=== PATIENT | male | born 1935 | race Caucasian/White ===

== ENCOUNTER → 2019-01-14 14:54 | Outpatient (CLI) | payer MEDICARE, OTHER, SELFPAY ==
[2019-01-14 15:17] LABS: Basophils # 0.1 K/mm3 (0-0.2); Basophils % 0.5 % (0.1-2.0); Eosinophils # 0.2 K/mm3 (0.0-0.4); Eosinophils % 2.5 % (0.1-12.0); Hematocrit 41.1 % (42.0-52.0); Hemoglobin 13.4 g/dL (14.1-18.0); Lymphocytes # 3.1 K/mm3 (0.7-4.5); Lymphocytes % 35.4 % (10-50); Mean Corpuscular HGB Conc 32.7 g/dL (31.8-35.4); Mean Corpuscular Hemoglobin 32.5 pg (27.0-31.2); Mean Corpuscular Volume 99.3 fl (80-94); Mean Platelet Volume 6.9 fl (7.4-10.4); Monocytes # 0.5 K/mm3 (0.1-1.0); Monocytes % 5.2 % (1.7-9.3); Neutrophils % 56.3 % (37.0-80.0); Platelet Count 223 K/mm3 (142-424); Red Blood Count 4.14 M/mm3 (4.60-6.20); Red Cell Distribution Width 15.6 % (11.5-17.5); White Blood Count 8.9 K/mm3 (4.8-10.8)
[2019-01-14 16:13] LABS: Alanine Aminotransferase 14 U/L (12-78); Albumin Level 3.7 gm/dL (3.4-5.0); Albumin/Globulin Ratio 1.1 (1.1-1.8); Alkaline Phosphatase 94 U/L (46-116); Anion Gap 13.1 mEq/L (5-15); Aspartate Amino Transferase 17 U/L (15-37); Bilirubin,Total 0.4 mg/dL (0.2-1.0); Blood Urea Nitrogen 26 mg/dL (7-18); Calcium 8.9 mg/dL (8.5-10.1); Carbon Dioxide 28 mmol/L (21.0-32.0); Chloride 103 mmol/L (98-107); Creatinine,Serum 1.47 mg/dL (0.70-1.30); Estimated Glomerular Filt Rate 46 ml/min (>60); Free Thyroxine Index 4.3 ug/dL (5.93-13.13); GFR (African American) 55 ML/MIN (>60); Globulin 3.5 gm/dl (1.3-3.2); Glucose 115 mg/dL (74-106); Potassium 5.1 mmoL/L (3.5-5.1); Sodium 139 mmol/L (136-145); T4 (Thyroxine) 11.2 ug/dl (4.7-13.3); Thyroid Stimulating Hormone 0.07 uIU/ml (0.358-3.740); Total Protein,Serum 7.2 gm/dL (6.4-8.2); Triiodothryronine (T3) Uptake 38 % (31-39)
== END ==
PROVIDERS: Visit Provider Internal Medicine Adolescent Medicine
DX: I50.22 Chronic systolic (congestive) heart failure (principal); E03.9 Hypothyroidism, unspecified
CPT/HCPCS: 36415; 80053; 84436; 84443; 84479; 85025

== ENCOUNTER → 2019-08-21 14:53 | Outpatient (CLI) | payer MEDICARE, OTHER, SELFPAY ==
[2019-08-21 18:50] LABS: Anion Gap 12.4 mEq/L (5-15); Blood Urea Nitrogen 22 mg/dL (7-18); Calcium 9.3 mg/dL (8.5-10.1); Carbon Dioxide 29 mmol/L (21.0-32.0); Chloride 100 mmol/L (98-107); Creatinine,Serum 1.62 mg/dL (0.70-1.30); Estimated Glomerular Filt Rate 41 ml/min (>60); GFR (African American) 49 ML/MIN (>60); Glucose 113 mg/dL (74-106); Potassium 4.4 mmoL/L (3.5-5.1); Sodium 137 mmol/L (136-145)
== END ==
PROVIDERS: Visit Provider Internal Medicine Adolescent Medicine
DX: N18.2 Chronic kidney disease, stage 2 (mild) (principal)
CPT/HCPCS: 36415; 80048

== ENCOUNTER → 2019-11-22 14:40 | Outpatient (CLI) | payer MEDICARE, SELFPAY ==
[2019-11-22 19:33] LABS: Anion Gap 13.4 mEq/L (5-15); Blood Urea Nitrogen 26 mg/dL (7-18); Calcium 8.7 mg/dL (8.5-10.1); Carbon Dioxide 27 mmol/L (21.0-32.0); Chloride 102 mmol/L (98-107); Creatinine,Serum 1.74 mg/dL (0.70-1.30); Estimated Glomerular Filt Rate 38 ml/min (>60); GFR (African American) 45 ML/MIN (>60); Glucose 102 mg/dL (74-106); Potassium 4.4 mmoL/L (3.5-5.1); Sodium 138 mmol/L (136-145)
== END ==
PROVIDERS: Visit Provider Internal Medicine Adolescent Medicine
DX: N17.9 Acute kidney failure, unspecified (principal)
CPT/HCPCS: 36415; 80048

== ENCOUNTER → 2020-04-23 09:54 | Outpatient (CLI) | payer MEDICARE, SELFPAY ==
[2020-04-23 11:26] LABS: Chloride 101 mmol/L (98-107); Potassium 4.1 mmoL/L (3.5-5.1); Sodium 137 mmol/L (136-145)
[2020-04-23 11:29] LABS: Anion Gap 9.1 mEq/L (5-15); Blood Urea Nitrogen 22 mg/dl (9-20); Calcium 8.7 mg/dl (8.4-10.2); Carbon Dioxide 31 mmol/L (22.0-30.0); Estimated Glomerular Filt Rate 45 ml/min (>60); GFR (African American) 54 ML/MIN (>60); Glucose 122 mg/dl (74-100)
[2020-04-23 11:39] LABS: NT Pro Brain Natriuretic Pep. 2640 pg/mL (0-450)
== END ==
PROVIDERS: Visit Provider Internal Medicine Cardiovascular Disease
DX: I25.10 Atherosclerotic heart disease of native coronary artery without angina pectoris; I42.9 Cardiomyopathy, unspecified; I50.22 Chronic systolic (congestive) heart failure; Z95.810 Presence of automatic (implantable) cardiac defibrillator; R06.02 Shortness of breath
CPT/HCPCS: 36415; 80048; 83880

== ENCOUNTER → 2020-07-20 11:44 | Outpatient (CLI) | payer MEDICARE, SELFPAY ==
[2020-07-20 12:03] LABS: Basophils # 0.1 K/mm3 (0-0.2); Basophils % 0.7 % (0.1-2.0); Eosinophils # 0.2 K/mm3 (0.0-0.4); Eosinophils % 2.1 % (0.1-12.0); Hematocrit 36.7 % (42.0-52.0); Hemoglobin 12.2 g/dL (14.1-18.0); Lymphocytes # 3.1 K/mm3 (0.7-4.5); Lymphocytes % 34.5 % (10-50); Mean Corpuscular HGB Conc 33.3 g/dL (31.8-35.4); Mean Corpuscular Hemoglobin 39.8 pg (27.0-31.2); Mean Corpuscular Volume 119.4 fl (80-94); Mean Platelet Volume 7.5 fl (7.4-10.4); Monocytes # 0.7 K/mm3 (0.1-1.0); Monocytes % 7.3 % (1.7-9.3); Neutrophils % 55.4 % (37.0-80.0); Platelet Count 214 K/mm3 (142-424); Red Blood Count 3.08 M/mm3 (4.60-6.20); Red Cell Distribution Width 15.6 % (11.5-17.5)
[2020-07-20 12:48] LABS: Chloride 101 mmol/L (98-107); Sodium 142 mmol/L (136-145)
[2020-07-20 12:49] LABS: Potassium 3.9 mmoL/L (3.5-5.1)
[2020-07-20 12:51] LABS: Alanine Aminotransferase 9 U/L (12-78); Albumin Level 3.8 g/dl (3.5-5.0); Albumin/Globulin Ratio 1.4 (1.1-1.8); Alkaline Phosphatase 69 U/L (38-126); Anion Gap 13.9 mEq/L (5-15); Aspartate Amino Transferase 22 U/L (17-59); Bilirubin,Total 0.7 mg/dl (0.2-1.3); Blood Urea Nitrogen 28 mg/dl (9-20); Carbon Dioxide 31 mmol/L (22.0-30.0); Cholesterol 157 mg/dl (140-200); Estimated Glomerular Filt Rate 38 ml/min (>60); GFR (African American) 47 ML/MIN (>60); Globulin 2.8 g/dL (1.3-3.2); Total Protein,Serum 6.6 g/dl (6.3-8.2); Triglycerides 149 mg/dl (30-150); VLDL Cholesterol 30 mg/dL (0-40)
[2020-07-20 12:52] LABS: Calcium 9.1 mg/dl (8.4-10.2); Chol/HDL Ratio 4.4 (1-3.5); Glucose 102 mg/dl (74-100); HDL Cholesterol 36 mg/dl (40-60)
[2020-07-20 13:04] LABS: Direct LDL Cholesterol 97.55 mg/dL (100-129)
[2020-07-20 13:09] LABS: Triiodothryronine (T3) Uptake 36 % (23.5-40.5)
[2020-07-20 13:10] LABS: Free Thyroxine Index 2.9 ug/dL (5.93-13.13); T4 (Thyroxine) 8.1 ug/dl (5.53-11.0)
[2020-07-20 13:24] LABS: Thyroid Stimulating Hormone 9.54 uIU/mL (0.465-4.68)
[2020-07-20 14:10] LABS: Prostate Specific Ag Screen 1.8 ng/ml (0.0-4.0)
== END ==
PROVIDERS: Visit Provider Internal Medicine Adolescent Medicine
DX: I25.10 Atherosclerotic heart disease of native coronary artery without angina pectoris (principal); E03.9 Hypothyroidism, unspecified; N40.1 Benign prostatic hyperplasia with lower urinary tract symptoms; Z12.5 Encounter for screening for malignant neoplasm of prostate
CPT/HCPCS: 36415; 80053; 80061; 84436; 84443; 84479; 85025; G0103

== ENCOUNTER 2020-11-02 12:33 | Observation (INO) | payer MEDICARE, SELFPAY ==
[2020-11-02 13:07] VITALS: BMI 18.6
--- NOTE | 2020-11-02 13:19 | ECG_ITS ---
APPROVED REPORT Exam: Resting ECG HR:74 bpm ECG Measurements Heart Rate 74 AXES QRSd 166 QRS 97 QT 454 T 115 QTc 503 Conclusion Electronic ventricular pacemaker Electronically signed by : Franky Hernadez, 11/03/2020 19:56:55
--- NOTE | 2020-11-02 13:19 | XR_ITS ---
PROCEDURE: XR CHEST AP CLINICAL HISTORY: soa Shortness of air COMPARISON: CR CXR CHEST(2 VIEWS-NOT PORTABLE) from 08/14/2015 CR CXR CHEST(2 VIEWS-NOT PORTABLE) from 06/05/[address] CHEST W CON from 11/02/2020 FINDINGS: Prior CABG. Biventricular and right atrial pacemaker leads are present from left subclavian approach. Normal heart size. Lungs are clear bilaterally. No acute bony abnormalities. IMPRESSION: No acute findings. Dictated by: Daniel Barone MD 11/03/2020 14:16 Daniel Barone MD in [facility] 11/03/2020 14:16
--- NOTE | 2020-11-02 13:22 | CT_ITS ---
PROCEDURE: CT CHEST W CON CLINCAL INDICATION: 20LB WEIGHT LOSS, ABD PAIN, SOA 75ML ISO 370 NO PRIOR COMPARISON: CR XR CHEST AP from 11/02/[address] ABDOMEN PELVIS WO/W CON from 11/02/2020 TECHNIQUE: IV Contrast: 75ml Isovue 370 Axial images obtained with sagittal and coronal reformats. All CT scans at the facility use one or more dose reduction, viz: automated exposure control, ma/kV adjustment per patient size (including targeted exams where dose is matched to indication, i.e. head), or iterative reconstruction technique. FINDINGS: There is mild ectasia the ascending aorta and aortic arch and descending thoracic aorta withe scattered areas eccentric soft and calcific plaque within the descending thoracic aorta. No evidence of aortic dissection. No evidence of central pulmonary embolus. No mediastinal or hilar mass or adenopathy. There has been a prior CABG. Extensive coronary artery calcifications are noted. There is mild cardiomegaly. Cardiac pacemaker device is present. No lobar consolidation or collapse. The there is calcified granuloma in the superior segment of the left lower lobe. No suspicious pulmonary nodules. There are degenerative changes in the thoracic spine with mild thoracic kyphosis. No acute bony anomaly. IMPRESSION: 1. No acute finding. 2. Atherosclerotic changes of the descending thoracic aorta. Dictated by: Daniel Barone MD 11/03/2020 06:22 Daniel Barone MD in [facility] 11/03/2020 06:22
--- NOTE | 2020-11-02 13:22 | CT_ITS ---
PROCEDURE: CT ABDOMEN PELVIS WO/W CON CLINICAL INDICATION: 20 LB WT LOSS, ABD PAIN 75 ML ISOVUE 370 INJ INTO RT ANT >PRIOR 07/21/17 COMPARISON: CT ABDPELW/O CT ABD PELVIS W/O CONTRAST from 07/21/2017 TECHNIQUE: IV Contrast: 75ML Isovue 370 Oral Contrast None Axial images obtained with sagittal and coronal reformats. All CT scans at the facility use one or more dose reduction, viz: automated exposure control, ma/kV adjustment per patient size (including targeted exams where dose is matched to indication, i.e. head), or iterative reconstruction technique. FINDINGS: There are 2 small hypodensities of the liver 1 in the left hepatic lobe and 1 the right hepatic lobe at 5 and 4 mm. These are not significantly changed. The gallbladder is contracted. The spleen has an unremarkable appearance. Small nodular density involves left adrenal gland not significantly changed. The pancreas and kidneys have an unremarkable appearance. No intestinal obstruction or free air. There is colonic diverticulosis of the descending and sigmoid colon. A small collection or outpouching of the colon is noted along the inferior aspect of the sigmoid colon series 7, image 81. This is not significantly changed and previously described dating back to 01/13/2014. Chronic abscess or large diverticulum is considered as previously described. The prostate is enlarged at 5 x 3.7 cm. The appendix is not clearly delineated. There is no evidence of appendicitis. Degenerative changes are present in the lumbar spine. Osteoarthritic changes noted in the hips IMPRESSION: 1. No acute finding. Overall no significant change. 2. Colonic diverticulosis with a moderate amount of retained colonic feces. 3. No change infrarenal 4.1 cm abdominal aortic aneurysm. No evidence of retroperitoneal hemorrhage. 4. No change in the outpouching involving the sigmoid colon which could be due to colonic diverticulum or chronic abscess. 5. Enlarged prostate Dictated by: Daniel Barone MD 11/03/2020 06:33 Daniel Barone MD in [place] 11/03/2020 06:33
[2020-11-02 13:59] VITALS: BP 140/75; PULSE 60; RESP 20; TEMP 36.6; O2SAT 92
[2020-11-02 14:49] LABS: Alanine Aminotransferase 9 U/L (12-78); Albumin Level 3.3 g/dl (3.5-5.0); Alkaline Phosphatase 79 U/L (38-126); Anion Gap 9.2 mEq/L (5-15); Aspartate Amino Transferase 24 U/L (17-59); Bilirubin,Total 0.7 mg/dl (0.2-1.3); Blood Urea Nitrogen 26 mg/dl (9-20); Calcium 8.8 mg/dl (8.4-10.2); Carbon Dioxide 29 mmol/L (22.0-30.0); Chloride 102 mmol/L (98-107); Creatinine Clearance Estimated 31 mL/min (50-200); Estimated Glomerular Filt Rate 52 ml/min (>60); GFR (African American) 63 ML/MIN (>60); Globulin 3.4 g/dL (1.3-3.2); Glucose 131 mg/dl (74-100); Potassium 4.2 mmoL/L (3.5-5.1); Sodium 136 mmol/L (136-145); Total Protein,Serum 6.7 g/dl (6.3-8.2)
[2020-11-02 14:53] LABS: Basophils % 0.3 % (0.1-2.0); Eosinophils # 0.1 K/mm3 (0.0-0.4); Eosinophils % 1.1 % (0.1-12.0); Hematocrit 30.5 % (42.0-52.0); Hemoglobin 10.3 g/dL (14.1-18.0); Lymphocytes # 1.3 K/mm3 (0.7-4.5); Lymphocytes % 24.4 % (10-50); Mean Corpuscular HGB Conc 33.8 g/dL (31.8-35.4); Mean Corpuscular Hemoglobin 41.3 pg (27.0-31.2); Mean Corpuscular Volume 122.5 fl (80-94); Mean Platelet Volume 8.2 fl (7.4-10.4); Monocytes # 0.4 K/mm3 (0.1-1.0); Monocytes % 8.1 % (1.7-9.3); Neutrophils # 3.4 K/mm3 (1.8-7.8); Platelet Count 268 K/mm3 (142-424); Red Blood Count 2.49 M/mm3 (4.60-6.20); Red Cell Distribution Width 15.8 % (11.5-17.5); White Blood Count 5.1 K/mm3 (4.8-10.8)
[2020-11-02 14:59] LABS: Magnesium 2.3 mg/dl (1.6-2.3)
[2020-11-02 15:00] VITALS: PULSE 65; RESP 20; O2SAT 93
[2020-11-02 15:08] LABS: Coronavirus 19 IgG Antibody Negative (Negative); Coronavirus 19 IgM Antibody Negative (Negative)
--- NOTE | 2020-11-02 15:59 | HMH.PHAVTE ---
[facility] Pharmacy VTE Monitoring - Patient Demographics Admission date: 11/02/20 Report Date: 11/02/20 Time: 15:59 Allergies/Adverse Reactions: Patient Allergies Penicillins Allergy (Intermediate, Verified 04/23/20 10:39) I-RASH, ITCHING Height: 1.68 m Weight: 52.163 kg - VTE Risk Labs: VTE Related Lab Results Hgb 10.3 g/dL (14.1-18.0) L 11/02/20 14:20 Hct 30.5 % (42.0-52.0) L 11/02/20 14:20 Plt Count 268 K/mm3 (142-424) 11/02/20 14:20 BUN 26 mg/dl (9-20) H 11/02/20 14:20 Creatinine 1.30 mg/dl (0.66-1.25) H 11/02/20 14:20 Estimated Creat Clear 31 mL/min (50-200) 11/02/20 14:20 Was VTE Risk Assessment Performed: Yes VTE Score: 2 VTE Risk Level: Very Low Risk - Prophylaxis VTE Prophylaxis Ordered?: Yes Types of VTE Prophylaxis: TEDS Knee High Location of Applied Device: Bilateral Lower Extremeties
[2020-11-02 16:00] VITALS: BP 145/80; PULSE 65; RESP 20; TEMP 36.7; O2SAT 93
--- NOTE | 2020-11-02 17:03 | CT_ITS ---
PROCEDURE: CT HEAD/BRAIN W CON CLINICAL INDICATION: history of fall with confusion Head injury with headache/pain, contusion, abrasion or hematoma COMPARISON: No exams were available for comparison TECHNIQUE: IV Contrast: 100ML Isovue 370 Axial images obtained. All CT scans at the facility use one or more dose reduction, viz: automated exposure control, ma/kV adjustment per patient size (including targeted exams where dose is matched to indication, i.e. head), or iterative reconstruction technique. FINDINGS: The exam performed with contrast only. Subtle areas of hemorrhage may not be identified on enhanced images. No midline shift or mass effect. No large areas of intracranial hemorrhage apparent. There is atrophy with low-density changes in the periventricular region consistent with ischemic gliotic change from microvascular disease. 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 No acute calvarial fracture. No obvious mastoid effusion or sinus air-fluid level. IMPRESSION: 1. No acute intracranial finding. 2. 5 mm right middle cerebral artery aneurysm. 3. Subtle areas of subarachnoid hemorrhage may not be identified on an enhanced exam only. No large areas of hemorrhage apparent Dictated by: Daniel Barone MD 11/03/2020 06:16 Daniel Barone MD in [place] 11/03/2020 06:16
--- NOTE | 2020-11-02 17:04 | HMH.HP ---
*Admission Date: 11/02/20 *Chief complaint: Weight loss, abdominal pain, frequent falls *History of present illness: 85-year-old white male who is been in his normal state of health until the past 4 months when he is began to have the precipitous onset of weight loss, he has lost 30 pounds in the past couple of months, and has been falling more frequently including striking his head. He came to the office today, was down to 115 pounds with evidence of cachexia and severe protein calorie malnutrition. Abdominal pain was noted, swelling of the abdomen was noted, head abrasion from prior fall was noted, he was admitted to hospital for further evaluation, diagnostic testing and supportive care. [facility] History I have reviewed the patient's past medical history: Yes Medical History: Reports:: Cardiomyopathy, Coronary Artery Disease, Hyperlipidemia, Hypertension, Internal Pacemaker, Myocardial Infarction Denies:: Cancer, Diabetes Mellitus Type 1, Diabetes Mellitus Type 2, MRSA, Seizures *Have you ever received a pneumonia vaccine?: No *Have you received a flu vaccine this season?: No Other Medical History: Reports: Hypothyroidism Other Surgeries: Yes: CABG, Pacemaker Amputation: Yes (RT middle finger) Fractures: No - *Social History Last grade of school completed: 9th or 10th Smoking Status: Never smoker Alcohol Intake: never Alcohol Intake Frequency:: other Substance Use Type: denies use *Occupational Status:: retired Housing: house Household Members: none *Travel in the last 8 weeks: None Family Hx:: Unable to obtain Review of Systems - Review of Systems Review of systems:: pertinent systems reviewed and negative unless documented below - Constitutional Reports anorexia, Reports fatigue, Reports malaise, Denies night sweats - Eyes Denies blind spots, Denies blurry vision - ENT Reports poor balance, Reports dizziness, Reports dry mouth, Denies abnormal hearing - *Cardiovascular Denies chest pain, Denies excessive sweating - *Respiratory Denies change in phlegm color, Denies shortness of breath with activity, Denies excessive phlegm production - *Gastrointestinal Reports abdominal pain, Reports change in stools, Reports constipation - *Genitourinary Denies difficulty urinating, Denies side pain Meds Home Medications Medication Instructions Recorded Confirmed Type aspirin 325 mg tablet 325 mg PO DAILY tab 01/04/18 04/23/20 History isosorbide mononitrate 30 mg 30 mg PO BID tab 01/04/18 04/23/20 History tablet,extended release 24 hr mirtazapine 15 mg tablet 15 mg PO HS 01/04/18 04/23/20 History nitroglycerin 0.4 mg sublingual 0.4 mg SUBLINGUAL Q5M PRN 01/04/18 04/23/20 History tablet tamsulosin 0.4 mg capsule 0.4 mg PO DAILY 04/03/19 04/23/20 History famotidine 20 mg tablet 20 mg PO BID tab 04/10/20 04/23/20 History linaclotide 72 mcg capsule 72 mcg PO DAILY cap 04/10/20 04/23/20 History lorazepam 1 mg tablet 1 mg PO TID PRN 04/10/20 04/23/20 History Furosemide [Furosemide 20mg Tab*] 20 mg PO DAILY 11/02/20 History Hydralazine HCl [Apresoline 10mg 10 mg PO TID 11/02/20 History tablet] Levothyroxine Sodium 88 mcg PO DAILY 11/02/20 History [Levothyroxine 88mcg (0.088mg) Tab] carvediloL [Carvedilol 12.5mg Tab] 12.5 mg PO BID 11/02/20 History Allergies Allergy/AdvReac Type Severity Reaction Status Date / Time Penicillins Allergy Intermediate I-RASH, Verified 04/23/20 10:39 ITCHING Exam Vital signs and Labs for Last 24 Hours: Temp Pulse Resp BP Pulse Ox 98.1 F 65 20 145/80 H 93 L 11/02/20 16:00 11/02/20 16:00 11/02/20 16:00 11/02/20 16:00 11/02/20 16:00 Laboratory Results - last 24 hr 11/02/20 14:20: Magnesium 2.3 11/02/20 14:20: WBC 5.1, RBC 2.49 L, Hgb 10.3 L, Hct 30.5 L, MCV 122.5 H, MCH 41.3 H*, MCHC 33.8, RDW 15.8, Plt Count 268, MPV 8.2, Neut % (Auto) 66.0, Lymph % (Auto) 24.4, [place] % (Auto) 8.1, Eos % (Auto) 1.1, Baso % (Auto) 0.3, Neut # (Auto) 3.4, Lymph # (
[2020-11-02 17:51] LABS: Thyroid Stimulating Hormone 0.05 uIU/mL (0.465-4.68)
[2020-11-02 18:12] LABS: Vitamin B12 < 159 pg/mL (239-931)
--- NOTE | 2020-11-02 18:15 | PC.NURSE ---
Medication Reconciliation completed per records from [facility]. Pt is unable to confirm if/when he has taken any of his medications. Grand-daughter contacted at this time, she is unsure if/when pt has been taking his medications. Also, requested for medication bottles to be brought in the AM for verification.
[2020-11-02 20:00] VITALS: BP 116/61; PULSE 66; RESP 18; TEMP 36.6; O2SAT 98
[2020-11-03 04:00] VITALS: BP 100/51; PULSE 76; RESP 18; TEMP 36.9; O2SAT 94
[2020-11-03 04:56] VITALS: BMI 185594.5
--- NOTE | 2020-11-03 06:15 | PC.NURSE ---
Pt is A&Ox3. Oriented to place, name and situation but not time. Lung sounds are diminished t/o bilaterally. No cough noted. Active bowel sounds in all 4 quads. Pt ambulated w/ standby assist with a steady gait and balance. Pt was restless x1 this shift, PRN ativan administered per DEC. Pt has slept soundly since. No other complaints or acute changes at this time.
--- NOTE | 2020-11-03 07:22 | PC.NURSE ---
VITAMIN B12 SHOT NOT AVAILABLE IN 2ND FLOOR [facility], WILL CONTACT PHARMACY FOR MEDICATION WHEN THEY ARRIVE.
--- NOTE | 2020-11-03 07:25 | HMH.PHAINT ---
MEDICATION RECONCILIATION COMPLETED ON PATIENT USING EXTERNAL FILL HISTORY FROM PHARMACY. -GLENN ROJAS, JENNIFERD
[2020-11-03 07:38] LABS: Basophils % 0.3 % (0.1-2.0); Eosinophils # 0.1 K/mm3 (0.0-0.4); Eosinophils % 2.2 % (0.1-12.0); Hematocrit 29.3 % (42.0-52.0); Hemoglobin 9.7 g/dL (14.1-18.0); Lymphocytes # 1.6 K/mm3 (0.7-4.5); Lymphocytes % 31.1 % (10-50); Mean Corpuscular HGB Conc 33.2 g/dL (31.8-35.4); Mean Corpuscular Volume 122.9 fl (80-94); Mean Platelet Volume 8.4 fl (7.4-10.4); Monocytes # 0.4 K/mm3 (0.1-1.0); Neutrophils % 58.5 % (37.0-80.0); Platelet Count 256 K/mm3 (142-424); Red Blood Count 2.38 M/mm3 (4.60-6.20); Red Cell Distribution Width 15.8 % (11.5-17.5); White Blood Count 5.2 K/mm3 (4.8-10.8)
[2020-11-03 07:50] LABS: Anion Gap 10.1 mEq/L (5-15); Blood Urea Nitrogen 20 mg/dl (9-20); Calcium 8.6 mg/dl (8.4-10.2); Carbon Dioxide 28 mmol/L (22.0-30.0); Chloride 104 mmol/L (98-107); Creatinine Clearance Estimated 31 mL/min (50-200); Estimated Glomerular Filt Rate 52 ml/min (>60); GFR (African American) 63 ML/MIN (>60); Glucose 104 mg/dl (74-100); Potassium 4.1 mmoL/L (3.5-5.1); Sodium 138 mmol/L (136-145)
[2020-11-03 07:55] LABS: Mean Corpuscular Hemoglobin 40.8 pg (27.0-31.2)
[2020-11-03 08:00] VITALS: BP 96/51; PULSE 90; RESP 18; TEMP 36.9; O2SAT 94
--- NOTE | 2020-11-03 08:08 | CA_ITS ---
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 5.60 mmHg Mitral Valve MV E Max Lance. 78.00 (40-130 cm/s) MV A Velocity 84.00 (40-130 cm/s) E/A Ratio 0.93 MV Decel. Time 150.00 (160-240 ms) MV PHT 44.00 ms Pulmonary Valve PV Peak Velocity 60.00 (50-150 cm/s) Tricuspid Valve TR P. Velocity 265.00 cm/s RAP Estimate 10.00 mmHg RVSP 38.10 mmHg Left Ventricle Left atrium is moderately enlarged, left ventricle is mildly dilated, mild concentric left ventricular hypertrophy, severe reduced left ventricular systolic function, visually estimated ejection fraction approximately 25 to 30%, there is marked hypokinesis involving the mid to distal septum, anterior anterior apical and apical wall. Inferior basal wall is also markedly hypokinetic. Diastolic parameters are inconclusive. Right Ventricle Right atrium and right ventricle are mildly enlarged with normal contractility. There is an AICD lead seen in the right ventricle. Aortic Valve Aortic valve is thickened and calcified, there is no aortic stenosis, there is trace aortic insufficiency. Mitral Valve Mitral valve leaflets are minimally thickened, there is no mitral stenosis, there is moderate to severe mitral regurgitation. Tricuspid Valve Tricuspid valve is grossly normal, there is mild tricuspid regurgitation, calculated right ventricular systolic pressure is 38 mmHg. Pulmonic Valve Pulmonic valve is poorly visualized. Great Vessels Aortic root is normal size. Pericardium No significant pericardial effusion noted. Conclusion 1. Biatrial enlargement, mildly dilated left ventricle, severe reduced left ventricular systolic function, visually estimated ejection fraction 25 to 30% with multiple segmental wall motion abnormality described above. Diastolic parameters are inconclusive. 2. Moderate to severe mitral and mild tricuspid regurgitation, calculated right ventricular systolic pressure 38 mmHg. 3. No significant pericardial effusion noted. Electronically signed by : Jayden King, 11/04/2020 06:14:18
--- NOTE | 2020-11-03 08:18 | SW/DCPLANNER ---
PATIENT ADMITTED TO [facility] IN AN OBSERVATION STATUS WITH WEAKNESS, WEIGHT LOSS AND RECENT FALLS... HE RESIDES IN [place] [facility] AND HAS A GRANDDAUGHTER THAT CHECKS ON HIM AND HELPS TO CARE FOR HIM... HE IS ALERT AND ORIENTED AND THE PLAN IS FOR HIM TO RETURN HOME AFTER DISCHARGE...CURRENTLY WAITING ON SOME LABS AND MAY DISCHARGE LATER IN THE AFTERNOON.
--- NOTE | 2020-11-03 08:43 | HMH.ACPN2 ---
Internal Medicine - PN: Subj *Date: 11/03/20 *Time: 09:19 Interval history: Mr. Webb did well overnight. Reviewed his imaging this morning which showed no glaring masses or abnormalities in his chest abdomen or pelvis. It did show a large suspected diverticulum versus abscess. We will pursue further labs this morning to assess for infection. On interview however he denies significant abdominal pain. Ate all of his breakfast per his report. Is afebrile and normotensive. Very pleasant and asking when can he go home. Exam Vital signs and Labs for Last 24 Hours: Temp Pulse Resp BP Pulse Ox 98.5 F 90 18 96/51 L 94 L 11/03/20 08:00 11/03/20 08:00 11/03/20 08:00 11/03/20 08:00 11/03/20 08:00 Laboratory Results - last 24 hr 11/02/20 14:20: Magnesium 2.3 11/02/20 14:20: WBC 5.1, RBC 2.49 L, Hgb 10.3 L, Hct 30.5 L, MCV 122.5 H, MCH 41.3 H*, MCHC 33.8, RDW 15.8, Plt Count 268, MPV 8.2, Neut % (Auto) 66.0, Lymph % (Auto) 24.4, [place] % (Auto) 8.1, Eos % (Auto) 1.1, Baso % (Auto) 0.3, Neut # (Auto) 3.4, Lymph # (Auto) 1.3, [place] # (Auto) 0.4, Eos # (Auto) 0.1, Baso # (Auto) 0.0 11/02/20 14:20: Sodium 136, Potassium 4.2, Chloride 102, Carbon Dioxide 29, Anion Gap 9.2, BUN 26 H, Creatinine 1.30 H, Estimated Creat Clear 31, Estimated GFR 52 L, Est GFR ( Amer) 63, Glucose 131 H, Calcium 8.8, Total Bilirubin 0.7, AST 24, ALT 9 L, Alkaline Phosphatase 79, Total Protein 6.7, Albumin 3.3 L, Globulin 3.4 H, Albumin/Globulin Ratio 1.0 L 11/02/20 14:20: SARS-CoV-2 IgG Ab (Rapid) Negative, SARS-CoV-2 IgM Ab (Rapid) Negative 11/02/20 14:20: Vitamin B12 < 159 L, TSH 0.05 L 11/03/20 07:15: WBC 5.2, RBC 2.38 L, Hgb 9.7 L, Hct 29.3 L, MCV 122.9 H, MCH 40.8 H*, MCHC 33.2, RDW 15.8, Plt Count 256, MPV 8.4, Neut % (Auto) 58.5, Lymph % (Auto) 31.1, [place] % (Auto) 8.0, Eos % (Auto) 2.2, Baso % (Auto) 0.3, Neut # (Auto) 3.0, Lymph # (Auto) 1.6, [place] # (Auto) 0.4, Eos # (Auto) 0.1, Baso # (Auto) 0.0 11/03/20 07:15: Sodium 138, Potassium 4.1, Chloride 104, Carbon Dioxide 28, Anion Gap 10.1, BUN 20, Creatinine 1.30 H, Estimated Creat Clear 31, Estimated GFR 52 L, Est GFR ( Amer) 63, Glucose 104 H D, Calcium 8.6 I & O for Last 24 hours: Intake & Output 10/31/20 11/01/20 11/02/20 11/03/20 23:59 23:59 23:59 23:59 Intake Total 480 / 840 820 / 820 Balance 480 / 840 820 / 820 Weight 52.163 kg 52.163 kg Narrative: - Constitutional thin, cachectic, alert and oriented however. Pleasant on exam. - *Routine HEENT Exam Head: Present: laceration (Left occipital scalp, well-healing) Eye: Present: EOMI, PERRL ENT: Present: mucous membranes dry - *Routine Neck Exam Present: supple. Absent: lymphadenopathy - *Routine Respiratory Exam Present: CTA bilaterally - *Routine Cardiovascular Exam Present: RRR - *Routine Abdominal Exam Present: soft, normoactive bowel sounds, tenderness, distended (Both lower quadrants) - *Routine Extremities Exam Absent: cyanosis, clubbing, edema - *Routine Skin Exam Present: warm. Absent: rash - *Routine Neurological Exam Present: alert, oriented X3, abnormal gait (Patient is weak with ataxic gait) Assessment and Plan (1) Protein-calorie malnutrition, severe Status: Acute Category: Medical Code(s): E43 - Unspecified severe protein-calorie malnutrition (2) Weight loss Status: Acute Category: Medical Code(s): R63.4 - Abnormal weight loss (3) Abdominal pain Status: Acute Category: Medical Code(s): R10.9 - Unspecified abdominal pain (4) Recurrent falls Status: Acute Category: Medical Code(s): R29.6 - Repeated falls (5) Head trauma Status: Acute Category: Medical Code(s): S09.90XA - Unspecified injury of head, initial encounter (6) Cardiomyopathy Status: Chronic Qualifiers: Category: Medical Code(s): I42.9 - Cardiomyopathy, unspecified (7) Chronic systolic heart failure Status: Chronic Category: Medical Code(s): I50.22 - Chronic sy
[2020-11-03 09:03] LABS: C-Reactive Protein 30.7 mg/L (0-4)
[2020-11-03 09:37] LABS: Erythrocyte Sedimentation Rate > 140 mm/hr (0-20)
--- NOTE | 2020-11-03 10:08 | HMH.DCSUM ---
General - General Admission date:: 11/02/20 Discharge date: 11/03/20 HPI HPI: 85-year-old white male who is been in his normal state of health until the past 4 months when he is began to have the precipitous onset of weight loss, he has lost 30 pounds in the past couple of months, and has been falling more frequently including striking his head. He came to the office today, was down to 115 pounds with evidence of cachexia and severe protein calorie malnutrition. Abdominal pain was noted, swelling of the abdomen was noted, head abrasion from prior fall was noted, he was admitted to hospital for further evaluation, diagnostic testing and supportive care. Hospital Course Hospital Course: 85-year-old gentleman with weight loss and falls. Admitted for failure to thrive and acute assessment of suspicious malignant process underlying his weight loss and falls. Imaging fortunately showed no large masses in his abdomen but does have finding of suspicious diverticulum versus abscess. This finding was present 6 years ago and has not changed. No signs of bacterial infection on admission. Patient tolerated good p.o. intake during admission, was adamant about going home, and did not necessitate placement. Attrition was consulted to assist in recommendations for patient once he is at home. Feel his weight loss is likely related to patient's lack of cooking for himself and poor appetite. Plan to have close follow-up in our office. I worry about his ability to have access to good nutrition given that he lives by himself, and relies on neighbors to cook and food per his report. Believe weight loss is due to inadequate calories. Will need further treatment for his B12 deficiency, we can do this in our office with close follow-up. We will attempt to set up with home health for medication management. Objective Vital signs: Temp Pulse Resp BP Pulse Ox 98.5 F 90 18 96/51 L 94 L 11/03/20 08:00 11/03/20 08:00 11/03/20 08:00 11/03/20 08:00 11/03/20 08:00 Narrative: - Constitutional thin, cachectic, alert and oriented however. Pleasant on exam. - *Routine HEENT Exam Head: Present: laceration (Left occipital scalp, well-healing) Eye: Present: EOMI, PERRL ENT: Present: mucous membranes dry - *Routine Neck Exam Present: supple. Absent: lymphadenopathy - *Routine Respiratory Exam Present: CTA bilaterally - *Routine Cardiovascular Exam Present: RRR - *Routine Abdominal Exam Present: soft, normoactive bowel sounds, tenderness, distended (Both lower quadrants) - *Routine Extremities Exam Absent: cyanosis, clubbing, edema - *Routine Skin Exam Present: warm. Absent: rash - *Routine Neurological Exam Present: alert, oriented X3, abnormal gait (Patient is weak with ataxic gait) Results Labs on day of discharge: Labs from last 24 hours 11/03/20 11/03/20 11/03/20 07:15 07:15 07:15 WBC RBC Hgb Hct MCV MCH MCHC RDW Plt Count MPV Neut % (Auto) Lymph % (Auto) [place] % (Auto) Eos % (Auto) Baso % (Auto) Neut # (Auto) Lymph # (Auto) [place] # (Auto) Eos # (Auto) Baso # (Auto) ESR > 140 H Sodium 138 Potassium 4.1 Chloride 104 Carbon Dioxide 28 Anion Gap 10.1 BUN 20 Creatinine 1.30 H Estimated Creat Clear 31 Estimated GFR 52 L Est GFR ( Amer) 63 Glucose 104 H D Calcium 8.6 Magnesium Total Bilirubin AST ALT Alkaline Phosphatase C-Reactive Protein 30.7 H Total Protein Albumin Globulin Albumin/Globulin Ratio Vitamin B12 Procalcitonin 0.070 TSH SARS-CoV-2 IgG Ab (Rapid) SARS-CoV-2 IgM Ab (Rapid) 11/03/20 11/02/20 11/02/20 07:15 14:20 14:20 WBC 5.2 RBC 2.38 L Hgb 9.7 L Hct 29.3 L MCV 122.9 H MCH 40.8 H* MCHC 33.2 RDW 15.8 Plt Count 256 MPV 8.4 Neut % (Auto) 58.5 Lymph % (Auto) 31.1 [place] %
--- NOTE | 2020-11-03 10:21 | HMH.PTEV ---
Physical Therapy Evaluation Rehab PT IP Evaluation Start: 11/02/20 17:03 Freq: ONCE Status: Active Protocol: Document 11/03/20 09:00 GERMÁN (Rec: 11/03/20 10:21 GERMÁN [id number]) Subjective/History History History 85-year-old white male who is been in his normal state of health until the past 4 months when he is began to have the precipitous onset of weight loss, he has lost 30 pounds in the past couple of months, and has been falling more frequently including striking his head. He came to the office today, was down to 115 pounds with evidence of cachexia and severe protein calorie malnutrition. Abdominal pain was noted, swelling of the abdomen was noted, head abrasion from prior fall was noted, he was admitted to hospital for further evaluation, diagnostic testing and supportive care. Subjective Subjective Pt reports no complaints Rehab PT IP Eval Objective Appearance Patient Behavior Appropriate,Cooperative Patient Orientation Person,Place Difficulty following instructions none Speech Pattern Clear,Appropriate Ambulation Patient Able to Ambulate Yes Ambulation Observation IP General Gait Pattern Observation No Deviations/Normal Ambulation Distance (feet) 75 Ambulation Ability Supervision/Stand by,Contact Guard/Hand Hold Balance Ability to Arise Able, uses arms to help Sitting Balance Steady, safe Standing Balance Narrow stance w/o support Dynamic Sitting Balance Ability Normal Dynamic Standing Balance Ability Fair Transfers Bed Transfer Ability Independent Chair Transfer Ability Independent Sit to Stand Bed Transfer Ability Supervision/Stand by Sit to Stand Chair Transfer Ability Supervision/Stand by ROM All Extremities PT ROM Status WFL MMT All Extremities PT MMT WFL Rehab PT IP prob,goals,plan Problems Date of Evaluation: 11/03/20 PT IP Problems Gait,Safety Rehab Potential Rehab Potential Good Equipment Needs Assistive Devices None / NA Plan PT Intervention Plan Transfers,Gait,
[2020-11-03 10:45] VITALS: BMI 18.4
--- NOTE | 2020-11-03 11:01 | SW/DCPLANNER ---
Addendum entered by Yolanda Leslie RN 11/04/20 15:04: Contacted patient's granddaughter and Rosita SANTILLAN. There is no home health available due to patient's insurance. Discussed with Dr. Hernadez possibility of patient qualifying for Hospice. He agrees. The granddaughter agrees with this referral. Will send to Hospice. ANGÉLICA Stroud Addendum entered by Patricia Salazar 11/03/20 13:49: RECEIVED A CALL FROM [facility] AND THEY CAN NOT ACCEPT THE REFERRAL STATING THEY DO NOT HAVE A CONTRACT WITH HIS [facility].. I HAVE SENT IT TO [facility] BUT THE PEST MANAGEMENT SUPERVISOR DIDN'T THINK THEY DON'T HAVE A CONTRACT EITHER. WAITING TO HEAR BACK. Addendum entered by Patricia Salazar 11/03/20 11:10: MADE A CALL TO [facility] TO SET UP MEALS ON WHEELS... PATIENT IS BEING DISCHARGED FROM THE HOSPITAL AND HAS HAD A SIGNIFICANT WEIGHT AND LIVES ALONE.. I HAVE LEFT A LENGTHY MESSAGE TO SEE IF HE CAN BE EVALUATED FOR SERVICES TO START... Original Note: RECEIVED REFERRAL FOR THIS PATIENT FOR HOME HEALTH SERVICES....PT, OT AND LONG TERM TO EVALUATE AND TREAT... I SPOKE WITH PATIENT AND HE CHOSE THE LOCAL AGENCY, [facility].. I HAVE ASKED FOR THEM TO START SERVICES IN THE AM...FAMILY WILL BE CALLED WHEN PATIENT HAS BEEN COMPLETELY DISCHARGED..
== END 2020-11-03 11:30 | disposition home health service (06) ==
PROVIDERS: Internal Medicine Adolescent Medicine; Admitting Provider Internal Medicine Adolescent Medicine; PCP Internal Medicine Adolescent Medicine; Visit Provider Internal Medicine Adolescent Medicine
DX: E43 Unspecified severe protein-calorie malnutrition (principal); Z68.1 Body mass index [BMI] 19.9 or less, adult; D51.9 Vitamin B12 deficiency anemia, unspecified; R62.7 Adult failure to thrive; I42.9 Cardiomyopathy, unspecified; R29.6 Repeated falls; I11.0 Hypertensive heart disease with heart failure; I50.22 Chronic systolic (congestive) heart failure; I25.10 Atherosclerotic heart disease of native coronary artery without angina pectoris; Z95.0 Presence of cardiac pacemaker; Z95.1 Presence of aortocoronary bypass graft; E03.9 Hypothyroidism, unspecified; Z79.82 Long term (current) use of aspirin; Z88.0 Allergy status to penicillin; Z79.899 Other long term (current) drug therapy
CPT/HCPCS: G0379; 36415; 70460; 71045; 71260; 74178; 80048; 80053; 82607; 83735; 84145; 84443; 85025; 85651; 86140; 86328; 93005; 93306; 97161; G0378; Q9967

== ENCOUNTER 2021-03-25 20:37 | Inpatient (IN) | payer OTHER, MEDICARE, SELFPAY ==
[2021-03-25] VITALS (10 sets, daily range): BP systolic 92–164; BP diastolic 60–110; PULSE 62–96; RESP 24–32; TEMP 36.3; O2SAT 82–96; BMI 20.9
--- NOTE | 2021-03-25 20:43 | ECG_ITS ---
APPROVED REPORT Exam: Resting ECG HR:90 bpm ECG Measurements Heart Rate 90 AXES QRSd 170 QRS 103 QT 438 T -69 QTc 535 Conclusion Demand pacemaker, interpretation is based on intrinsic rhythm LBBB noted Abnormal ECG Electronically signed by : Franky Hernadez, 03/27/2021 07:27:16
[2021-03-25 21:04] LABS: ABG Base Excess -9.4 mmol/L (-2.4-2.3); ABG HCO3 17.8 mmhg (22.0-26.0); ABG Oxygen Saturation 89 % (90-100); ABG PCO2 41.3 mmhg (35.0-45.0); ABG PH 7.25 mmol/L (7.35-7.45); ABG PO2 58.2 mmhg (80-100); ABG TCO2 19.1 mmhg (23-27)
--- NOTE | 2021-03-25 21:04 | XR_ITS ---
PROCEDURE INFORMATION: Exam: XR Chest Exam date and time: 03/25/2021 9:04 PM Age: 85 years old Clinical indication: Shortness of breath; Prior surgery; Surgery type: Pacemaker, open heart; Patient HX: Acute onset of SOA TECHNIQUE: Imaging protocol: XR of the chest. Views: 1 view. COMPARISON: CR XR CHEST AP 11/02/2020 3:20 PM FINDINGS: Tubes, catheters and devices: There is a left chest wall triple lead pacing device, unchanged. Lungs: There are prominent bilateral perihilar markings. Bilateral diffuse lung opacities in a perihilar distribution. Pleural spaces: Unremarkable. No pleural effusion. No pneumothorax. Heart/Mediastinum: The heart is borderline enlarged. Bones/joints: Mid sternotomy wires and postoperative changes of CABG re-identified. Diffuse osteopenia. IMPRESSION: Prominent bilateral perihilar and diffuse lung opacities may represent pulmonary edema, atelectasis or pneumonia.
--- NOTE | 2021-03-25 21:06 | HMH.EDSOB ---
ED Disposition Clinical Impression: Automatic implantable cardiac defibrillator in situ, Severe sepsis with acute organ dysfunction Community acquired pneumonia Qualifiers: Laterality: right Lung location: lower lobe of lung Qualified Code(s): J18.9 - Pneumonia, unspecified organism UTI (urinary tract infection) Qualifiers: Urinary tract infection type: site unspecified Hematuria presence: without hematuria Qualified Code(s): N39.0 - Urinary tract infection, site not specified CHF (congestive heart failure) Qualifiers: Heart failure type: unspecified Heart failure chronicity: acute on chronic Qualified Code(s): I50.9 - Heart failure, unspecified Disposition: Admitted As Inpatient Condition on Discharge: Pending Sale To [facility] - Critical Care Critical Care Time: No Attestation: On 03/25/21, the high probability of a clinically significant, sudden or life threatening deterioration of the following system(s) required my full and direct attention, intervention and personal management. The time I documented below is in addition to time spent performing reported procedures but includes the following listed in this critical care notation. Medical Decision Making - Medical Records Medical records reviewed: Yes: I reviewed the patient's medical records. - Yaniv Inquiry Pt receiving controlled substance: No Vital Signs: 03/25/21 20:48 03/25/21 20:50 03/25/21 21:06 Temperature 97.4 F L Temperature Source Oral Pulse Rate 84 87 Pulse Rate [Right] 62 Respiratory Rate 32 H Blood Pressure 158/102 H 143/110 H Blood Pressure [Right Arm] 164/105 H Blood Pressure Mean [Right Arm] 124 Blood Pressure Source [Right Arm] Automatic Cuff Blood Pressure Position [Right Arm] Supine 02 Sat by Pulse Oximetry 89 L 82 L 96 Oxygen Delivery Method Room Air Oxygen Flow Rate (LPM) 03/25/21 21:30 03/25/21 21:48 03/25/21 22:01 Temperature Temperature Source Pulse Rate 79 92 H 64 Pulse Rate [Right] Respiratory Rate Blood Pressure 135/90 116/61 Blood Pressure [Right Arm] Blood Pressure Mean [Right Arm] Blood Pressure Source [Right Arm] Blood Pressure Position [Right Arm] 02 Sat by Pulse Oximetry 94 L 96 92 L Oxygen Delivery Method Vapotherm Oxygen Flow Rate (LPM) 30 03/25/21 22:30 Temperature Temperature Source Pulse Rate 70 Pulse Rate [Right] Respiratory Rate Blood Pressure 112/66 Blood Pressure [Right Arm] Blood Pressure Mean [Right Arm] Blood Pressure Source [Right Arm] Blood Pressure Position [Right Arm] 02 Sat by Pulse Oximetry 95 Oxygen Delivery Method Oxygen Flow Rate (LPM) - Lab Data Lab results reviewed: Yes: I reviewed the patient's lab results. Lab Results 03/25/21 21:00: Specimen Source Left radial, O2 % 2lnc, ABG pH 7.25 L, ABG pCO2 41.3, ABG pO2 58.2 L, ABG HCO3 17.8 L, ABG Total CO2 19.1 L, ABG O2 Saturation 89 L, ABG Base Excess -9.4 L, Daniel Test Acceptable 03/25/21 21:00: Lactate 2.7 H 03/25/21 21:10: Urine Color Yellow, Urine Appearance Sl cloudy, Urine pH 5.5, Ur Specific [place] >= 1.030, Urine Protein 1+, Urine Glucose (UA) Negative, Urine Ketones Negative, Urine Blood 3+, Urine Nitrate Negative, Urine Bilirubin Negative, Urine Urobilinogen 0.2, Ur Leukocyte Esterase 1+ A, Urine RBC 20-50, Urine WBC 50-100, Ur Squamous Epith Cells 3-5, Urine Bacteria 4+ 03/25/21 21:10: Chlamy pneumoniae PCR Not detected, Adenovirus (PCR) Not detected, B. pertussis DNA (PCR) Not detected, Coronavirus OC43 (PCR) Not detected, Coronavirus HKU1 (PCR) Not detected, Coronavirus 229E (PCR) Not detected, SARS-CoV-2 (PCR) Not detected, Coronavirus NL63 (PCR) Not detected, Human Metapneumovir PCR Not detected, Influenza A (H1) PCR Not detected, Influ A (H1N1/09) PCR Not detected, Influenza A (H3) PCR Not detected, Influenza Type A (PCR) Not detected, Influenza Type B (PCR) Not detected, M. pneumoniae (PCR) Not detected, Parainfluenza 1 (PCR) Not detected, Parainfluenza 2 (PCR) Not detected
[2021-03-25 21:17] LABS: Microscopic, Urine URINE MICROSCOPIC (MICROSCOPIC)
[2021-03-25 21:19] LABS: Adenovirus,PCR Not Detected (NotDetected); Bordetella Pertussis Not Detected (NotDetected); Chlamydophila Pneumoniae, PCR Not Detected (NotDetected); Coronavirus 19, PCR Not Detected (NotDetected); Coronavirus 229E Not Detected (NotDetected); Coronavirus NL63 Not Detected (NotDetected); Coronavirus OC43 Not Detected (NotDetected); Coronovirus HKU1,PCR Not Detected (NotDetected); Human Metapneumovirus Not Detected (NotDetected); Influenza A, PCR Not Detected (NotDetected); Influenza AH1, 2009 Not Detected (NotDetected); Influenza AH1, PCR Not Detected (NotDetected); Influenza AH3,PCR Not Detected (NotDetected); Influenza B, PCR Not Detected (NotDetected); Mycoplasma Pneumoniae, PCR Not Detected (NotDetected); Parainfluenza 1, PCR Not Detected (NotDetected); Parainfluenza 2, PCR Not Detected (NotDetected); Parainfluenza 3, PCR Not Detected (NotDetected); Parainfluenza 4, PCR Not Detected (NotDetected); Respiratory Syncytial Virus Not Detected (NotDetected); Rhinovirus/Enterovirus Not Detected (NotDetected)
[2021-03-25 21:23] LABS: Basophils # 0.1 K/mm3 (0-0.2); Basophils % 0.4 % (0.1-2.0); Eosinophils # 0.2 K/mm3 (0.0-0.4); Eosinophils % 0.7 % (0.1-12.0); Hematocrit 38.9 % (42.0-52.0); Hemoglobin 12.6 g/dL (14.1-18.0); Lymphocytes # 4.2 K/mm3 (0.7-4.5); Lymphocytes % 15.9 % (10-50); Mean Corpuscular HGB Conc 32.5 g/dL (31.8-35.4); Mean Corpuscular Volume 92.3 fl (80-94); Mean Platelet Volume 7.5 fl (7.4-10.4); Monocytes % 3.8 % (1.7-9.3); Neutrophils # 20.8 K/mm3 (1.8-7.8); Neutrophils % 79.2 % (37.0-80.0); Platelet Count 315 K/mm3 (142-424); Red Blood Count 4.21 M/mm3 (4.60-6.20); Red Cell Distribution Width 15.6 % (11.5-17.5); White Blood Count 26.2 K/mm3 (4.8-10.8)
[2021-03-25 21:23] LABS: Appearance,Urine SL CLOUDY (Clear); Bilirubin,Urine Negative (Negative); Blood, Urine 3+ (Negative); Color,Urine YELLOW (Yellow); Glucose,Urine (UA) Negative (Negative); Ketones,Urine Negative (Negative); Leukocyte Esterase,Urine 1+ (Negative); Nitrate,Urine Negative (Negative); PH,Urine 5.5 (5.0-8.5); Protein,Urine 1+ (Negative); Specific Gravity, Urine >= 1.030 (1.005-1.030); Urobilinogen,Urine 0.2 EU/dl (0.2)
[2021-03-25 21:29] LABS: MANUAL DIFFERENTIAL MANUAL DIFFERENTIAL (MANUAL DIFF)
[2021-03-25 21:29] LABS: Allen's Test Acceptable; Oxygen 2LNC %; Source Left Radial
[2021-03-25 21:30] LABS: RBC,Urine 20-50 #/hpf (0-3); WBC,Urine 50-100 #/hpf (0-3)
[2021-03-25 21:31] LABS: Bacteria,Urine 4+ /lpf
[2021-03-25 21:32] LABS: Alanine Aminotransferase 11 U/L (12-78); Albumin Level 4.1 g/dl (3.5-5.0); Albumin/Globulin Ratio 1.1 (1.1-1.8); Alkaline Phosphatase 126 U/L (38-126); Anion Gap 14.9 mEq/L (5-15); Aspartate Amino Transferase 21 U/L (17-59); Bilirubin,Total 0.9 mg/dl (0.2-1.3); Blood Urea Nitrogen 20 mg/dl (9-20); Calcium 8.5 mg/dl (8.4-10.2); Carbon Dioxide 17 mmol/L (22.0-30.0); Chloride 105 mmol/L (98-107); Creatinine Clearance Estimated 35 mL/min (50-200); Estimated Glomerular Filt Rate 52 ml/min (>60); GFR (African American) 63 ML/MIN (>60); Globulin 3.7 g/dL (1.3-3.2); Glucose 258 mg/dl (74-100); Potassium 3.9 mmoL/L (3.5-5.1); Sodium 133 mmol/L (136-145); Total Protein,Serum 7.8 g/dl (6.3-8.2)
[2021-03-25 21:37] LABS: C-Reactive Protein 56.8 mg/L (0-4)
[2021-03-25 21:43] LABS: NT Pro Brain Natriuretic Pep. 10300 pg/mL (0-450)
[2021-03-25 21:46] LABS: Troponin I 0.02 ng/ml (0.00-0.034)
[2021-03-25 21:48] LABS: Erythrocyte Sedimentation Rate 40 mm/hr (0-20)
[2021-03-25 21:48] LABS: Lactic Acid 2.7 mmol/L (0.7-2.1)
[2021-03-25 22:09] LABS: Eosinophils % 1 % (0-3); Lymphocytes % 12 % (10-50); Monocytes % 4 % (2-9); Neutrophils % 80 % (42-76); Platelet Estimate Normal; RBC Morphology Normal; Total Cells Counted 100
--- NOTE | 2021-03-25 22:09 | PC.NURSE ---
Pt's granddaughter & POA, Rosita Pereira, has set up password of Rosita . JACQUE was instructed with the number of the 2nd fl to call for updates.
[2021-03-25 22:22] LABS: T4 (Thyroxine) 6.1 ug/dl (5.53-11.0)
--- NOTE | 2021-03-25 23:01 | PC.NURSE ---
Kourtney content manager nurse for [facility] (Hospice) paged
[2021-03-26] VITALS (15 sets, daily range): BP systolic 103–118; BP diastolic 57–75; PULSE 69–88; RESP 18–20; TEMP 35.9–36.8; O2SAT 82–98; BMI 20.6; BMI 20.5
--- NOTE | 2021-03-26 00:06 | PC.NURSE ---
PT ARRIVE TO FLOOR VIA STRETCHER FROM ED W/STAFF AT 0005
[2021-03-26 00:22] LABS: Reflex Lactic Add Lactic Reflex
[2021-03-26 01:05] LABS: Lactic Acid Follow Up (RFLX 1) 1.4 mmol/L (0.7-2.1)
[2021-03-26 01:18] LABS: Troponin I 0.06 ng/ml (0.00-0.034)
[2021-03-26 03:16] LABS: Troponin I 0.07 ng/ml (0.00-0.034)
--- NOTE | 2021-03-26 04:14 | PC.NURSE ---
pt alert and oriented. during admission code status addressed and pt expressed wishes to be a full code. telemetry reads paced. iv patent and infusing per order. vss slightly improving. rodriguez draining clear yellow urine.call light in reach. will continue to monitor pt condition
[2021-03-26 06:39] LABS: POC Glucose,Bedside 140 (70-110)
[2021-03-26 06:49] LABS: Basophils % 0.1 % (0.1-2.0); Eosinophils # 0.1 K/mm3 (0.0-0.4); Eosinophils % 0.3 % (0.1-12.0); Hematocrit 35.5 % (42.0-52.0); Lymphocytes # 1.3 K/mm3 (0.7-4.5); Lymphocytes % 7.4 % (10-50); Mean Corpuscular HGB Conc 31.9 g/dL (31.8-35.4); Mean Platelet Volume 7.6 fl (7.4-10.4); Monocytes # 0.2 K/mm3 (0.1-1.0); Monocytes % 0.9 % (1.7-9.3); Neutrophils # 15.6 K/mm3 (1.8-7.8); Neutrophils % 91.3 % (37.0-80.0); Platelet Count 206 K/mm3 (142-424); Red Blood Count 3.91 M/mm3 (4.60-6.20); Red Cell Distribution Width 15.6 % (11.5-17.5)
[2021-03-26 07:00] LABS: Anion Gap 15.1 mEq/L (5-15); Blood Urea Nitrogen 21 mg/dl (9-20); Calcium 8.2 mg/dl (8.4-10.2); Carbon Dioxide 17 mmol/L (22.0-30.0); Chloride 108 mmol/L (98-107); Creatinine Clearance Estimated 40 mL/min (50-200); Estimated Glomerular Filt Rate 64 ml/min (>60); GFR (African American) 77 ML/MIN (>60); Glucose 131 mg/dl (74-100); Magnesium 1.8 mg/dl (1.6-2.3); Potassium 4.1 mmoL/L (3.5-5.1); Sodium 136 mmol/L (136-145)
[2021-03-26 07:01] LABS: MANUAL DIFFERENTIAL MANUAL DIFFERENTIAL (MANUAL DIFF)
--- NOTE | 2021-03-26 07:14 | HMH.HP ---
*Admission Date: 03/25/21 *Chief complaint: short of breath, weakness *History of present illness: Mr. Webb is an 85-year-old white male with history of failure to thrive, systolic heart failure, chronic anemia, who presented to the ER yesterday with progressive shortness of breath and weakness for the past few days. Of note, he was seen in October due to failure to thrive and progressive weight loss. Has been at home on hospice. Came in today with family due to concern for respiratory distress. Patient noted to have significant hypoxemia and respiratory acidosis. Was started on Vapotherm in the ER. Work-up concerning for UTI, right lower lobe pneumonia, leukocytosis, and ROMI. Meeting criteria for severe sepsis. Started on IV antibiotics, IV fluids, and cultures obtained per protocol. Admitted to medicine for further management. On exam this morning, patient appears comfortable on Vapotherm has been able to wean down on settings. Tolerating breakfast, pleasant and oriented on interview. Complains of small shortness of breath but denies chest pain, nausea, vomiting, diarrhea. No headache or altered mental status. [facility] History I have reviewed the patient's past medical history: Yes Medical History: Reports:: Aneurysm, Cardiomyopathy, Congestive Heart Failure, Coronary Artery Disease, Diabetes Mellitus Type 1, Diabetes Mellitus Type 2, Hyperlipidemia, Hypertension, Internal Pacemaker, Myocardial Infarction Denies:: Cancer, MRSA, Seizures *Have you ever received a pneumonia vaccine?: No *Have you received a flu vaccine this season?: Yes Other Medical History: Reports: Hypothyroidism Other Surgeries: Yes: CABG, Pacemaker Amputation: Yes (RT middle finger) Fractures: No - *Social History Last grade of school completed: 7th or 8th Smoking Status: Former smoker Tobacco Type: cigarettes # Packs/Day (cigarettes): 5 #Yrs smoked (if former smoker): 40 Alcohol Intake: never Alcohol Intake Frequency:: other Substance Use Type: denies use *Occupational Status:: retired Housing: house Household Members: none *Travel in the last 8 weeks: None Family Hx:: Unable to obtain Review of Systems - Review of Systems Review of systems:: pertinent systems reviewed and negative unless documented below (14 point review of systems performed, pertinent positives and negatives as per HPI) - *Neurologic Denies seizure-like activity Meds Home Medications Medication Instructions Recorded Confirmed Type aspirin 325 mg tablet 325 mg PO DAILY tab 01/04/18 03/26/21 History tamsulosin 0.4 mg capsule 0.4 mg PO HS 04/03/19 03/26/21 History famotidine 20 mg tablet 20 mg PO BID tab 04/10/20 03/26/21 History carvediloL [Carvedilol 12.5mg Tab] 12.5 mg PO BID 11/02/20 03/26/21 History Isosorbide Mononitrate [Isosorbide 30 mg PO BID 03/25/21 03/26/21 History Mononitrate ER] Levothyroxine Sodium [Synthroid 75 mcg PO DAILYDM 03/25/21 03/26/21 History 75mcg (0.075mg) tablet] Mirtazapine [Remeron 15mg tablet] 15 mg PO HS 03/25/21 03/26/21 History Sennosides/Docusate Sodium 1 each PO BID 03/25/21 03/26/21 History [Senexon-S Tablet] Furosemide [Lasix 20mg tab] 20 mg PO DAILYP PRN 03/26/21 03/26/21 History LORazepam [Lorazepam 1mg Tablet] 1 mg PO TID 03/26/21 03/26/21 History Allergies Allergy/AdvReac Type Severity Reaction Status Date / Time Penicillins Allergy Intermediate I-RASH, Verified 04/23/20 10:39 ITCHING Exam Vital signs and Labs for Last 24 Hours: Temp Pulse Resp BP Pulse Ox 97.1 F L 74 18 110/63 95 03/26/21 03:25 03/26/21 06:34 03/26/21 03:25 03/26/21 03:25 03/26/21 06:34 Laboratory Results - last 24 hr 03/25/21 21:00: Specimen Source Left radial, O2 % 2lnc, ABG pH 7.25 L, ABG pCO2 41.3, ABG pO2 58.2 L, ABG HCO3 17.8 L, ABG Total CO2 19.1 L, ABG O2 Saturation 89 L, ABG Base Excess -9.4 L, Daniel Test Acceptable 03/25/21 21:00: Lactate 2.7 H 03/25/21 21:10: Urine Color Yellow, Urine Appearance Sl c
--- NOTE | 2021-03-26 08:00 | CA_ITS ---
APPROVED REPORT EXAM: Comprehensive 2D, Doppler, and color-flow Echocardiogram Service Promoter Salesperson: Mayra Thomas RVT Ht: 5 ft 6 in Wt: 130lbs BSA: 1.67 BP: 116/61 mmHg Indications: SOA,CHF,CM,AICD,CAD,EX SMOKER,HTN,HLD 2D Dimensions LVOT 2.00 cm (M/F) 1.5-2.5 LA Volume 42.60 mL LA Volume Index 25.66 mL/m2 (M/F) 16-34 M-Mode Dimensions RVDd 2.25 cm (0.9-2.6) LA Diam 4.90 cm (1.9-4.0) LVDd 6.16 cm (3.5-5.7) Ao Diam 3.81 cm (2.0-3.7) LVDs 4.91 cm (3.5-5.7) IVSd 1.09 cm (0.6-1.1) PWd 0.68 cm (0.6-1.1) EF (Teich) 40.70% FS 20.30% EDV (Teich) 191.10 mL TAPSE 1.92 (<1.7) ESV (Teich) 113.40 mL LV Diastology E Decel Time 150.00 (160-240 msec) E/A Ratio 2.4 MED E' 3.50 (< 7 cm/sec) E'/MED E' Ratio 29.97 (>14) LAT E' 3.60 (<10 cm/sec) E/LAT E' Ratio 29.14 (>14) Aortic Valve AO Peak GR. 4.10 mmHg Mitral Valve MV E Max Lance. 105.00 (40-130 cm/s) MV A Velocity 44.00 (40-130 cm/s) E/A Ratio 2.36 MV Decel. Time 150.00 (160-240 ms) MV PHT 44.00 ms Pulmonary Valve PV Peak Velocity 69.00 (50-150 cm/s) Tricuspid Valve TR P. Velocity 339.00 cm/s RAP Estimate 10.00 mmHg RVSP 56.00 mmHg Left Ventricle Left atrium is moderately enlarged, left ventricle is mildly dilated, there is severely recessed ventricular systolic function, visually estimated ejection fraction approximately 30%, left ventricle is globally hypokinetic, superimposed segmental wall motion abnormality cannot be excluded. Diastolic parameters are inconclusive. Right Ventricle Right atrium and right ventricle mildly enlarged with normal contractility, there is an AICD lead seen in right ventricle. Aortic Valve Aortic valve is minimally thickened and fibrosed, there is no aortic stenosis or aortic insufficiency. Mitral Valve Mitral valve leaflets are minimally thickened, there is moderate to severe mitral regurgitation. Tricuspid Valve Tricuspid valve grossly normal, there is mild tricuspid regurgitation, calculated right ventricular systolic pressure is 49 mmHg. Pulmonic Valve Pulmonic valve is poorly visualized. Great Vessels Aortic root is normal size. Inferior vena cava is mildly dilated without significant inspiratory collapse. Pericardium No significant pericardial effusion noted. Conclusion 1. Biatrial enlargement, dilated left ventricle, severely recessed ventricular systolic function, visually estimated ejection fraction 30% with left ventricle globally hypokinetic, superimposed segmental wall motion abnormality cannot be excluded. As endocardial surfaces are poorly visualized. Diastolic parameters are inconclusive. 2. Moderate to severe mitral regurgitation. 3. Mild tricuspid regurgitation, calculated right ventricular systolic pressure is 49 mmHg. 4. No significant pericardial effusion noted. Electronically signed by : Jayden King, 03/26/2021 14:21:55
--- NOTE | 2021-03-26 08:26 | HMH.PHAVTE ---
[facility] Pharmacy VTE Monitoring - Patient Demographics Admission date: 03/26/21 Report Date: 03/26/21 Time: 08:26 Allergies/Adverse Reactions: Patient Allergies Penicillins Allergy (Intermediate, Verified 04/23/20 10:39) I-RASH, ITCHING Height: 1.68 m Weight: 58.258 kg Patient Problems: Current Active Problems Protein-calorie malnutrition, severe (Acute) Community acquired pneumonia (Acute) Severe sepsis with acute organ dysfunction (Acute) UTI (urinary tract infection) (Acute) CHF (congestive heart failure) (Acute) Acute hypoxemic respiratory failure (Acute) Non-STEMI (non-ST elevated myocardial infarction) (Acute) Acute on chronic systolic CHF (congestive heart failure) (Acute) 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
--- NOTE | 2021-03-26 09:00 | HMH.PHAINT ---
CLARIFIED HOME MEDICATION LIST WITH [facility] AND THEN CALLED [facility] THE [facility] THAT PATIENT ACTUALLY USES. ALSO DISCUSSED WITH STILL CLEANER TUBE FROM CARDIOLOGY
--- NOTE | 2021-03-26 10:30 | SW/DCPLANNER ---
This patient is currently established with [facility]. I spoke with Dina from [facility] and she has confirmed this patients stay is related to Hospice services. I will continue to update Hospice regarding this patient.
[2021-03-26 10:45] LABS: Lymphocytes % 11 % (10-50); Neutrophils % 89 % (42-76); Platelet Estimate Normal; RBC Morphology Normal; Total Cells Counted 100
[2021-03-26 11:03] LABS: Hemoglobin 11.3 g/dL (14.1-18.0)
--- NOTE | 2021-03-26 11:50 | DIET.NUTRFU ---
Pt with severe protein calorie malnutrition rt CHF. Pt given malnutrition dx at last stay with loss 20% BW past year. He has not lost any weight since then, however he is retaining fluid likely masking weight loss. Pt is taking advantage of nutritional services available with Hospice and this has improved his nutritional status some. Diet edu/counseling for malnutrition/CHF given and pt encouraged to reach out with any questions/concerns post dc. Diet partially liberalized to No Added Salt with BID supplements of pt's preference. Fat/cholesterol restriction not indicated, will monitor and alter as needed.
--- NOTE | 2021-03-26 17:31 | PC.NURSE ---
PT UNABLE TO MAKE PRODUCTIVE COUGH. SPECIMEN CUP LEFT AT BEDSIDE
--- NOTE | 2021-03-26 17:39 | PC.NURSE ---
Pt has been pleasant and cooperative this shift. A&O X4. No complaints of pain. No N/V. Pt is currently receiving O2 via Vapotherm @ 20 LPM with sats. >90%. Lung sounds reveal fine crackles. No edema noted. Skin is C/D/I. Telemetry reveals a PACED rhythm. Pt ambulates with assistance X1. F/C is patent and draining clear, yellow urine at bedside to gravity. No BM today. Appetite is fair and pt eats about 50-75% of all meals. Pt has been instructed to provide a sputum sample and a specimen cup is at bedside. 20 G peripheral IV in the LT AC is patent and SL. 20 G peripheral IV in the LT wrist is patent and infusing NS @ 50 ML/HR. VSS. Call light within reach. Will continue to monitor.
[2021-03-27] VITALS (14 sets, daily range): BP systolic 105–123; BP diastolic 51–81; PULSE 64–78; RESP 18–24; TEMP 35.9–36.9; O2SAT 87–99; BMI 20.9
--- NOTE | 2021-03-27 03:19 | PC.NURSE ---
shift summary pt is alert andoriented X4. note some fine crackles in pts lung sounds. pt is receiving O2 via vapotherm with 10L and 20% fio2 with sats maintained 90% or above. oil well shooter shows pt has a paced rhythm. pt voids per rodriguez with clear yellow in color urine. pt denies any pain, nausea, vomiting, or diarrhea.
[2021-03-27 07:06] LABS: Basophils % 0.1 % (0.1-2.0); Eosinophils % 0.2 % (0.1-12.0); Hematocrit 33.8 % (42.0-52.0); Lymphocytes # 1.9 K/mm3 (0.7-4.5); Lymphocytes % 11.9 % (10-50); Mean Corpuscular HGB Conc 32.5 g/dL (31.8-35.4); Mean Corpuscular Hemoglobin 29.9 pg (27.0-31.2); Mean Corpuscular Volume 91.9 fl (80-94); Mean Platelet Volume 7.6 fl (7.4-10.4); Monocytes # 0.6 K/mm3 (0.1-1.0); Monocytes % 3.5 % (1.7-9.3); Neutrophils # 13.5 K/mm3 (1.8-7.8); Neutrophils % 84.3 % (37.0-80.0); Platelet Count 215 K/mm3 (142-424); Red Blood Count 3.68 M/mm3 (4.60-6.20); Red Cell Distribution Width 15.8 % (11.5-17.5)
[2021-03-27 07:08] LABS: MANUAL DIFFERENTIAL MANUAL DIFFERENTIAL (MANUAL DIFF)
[2021-03-27 07:21] LABS: Alanine Aminotransferase 18 U/L (12-78); Albumin Level 3.7 g/dl (3.5-5.0); Albumin/Globulin Ratio 1.2 (1.1-1.8); Alkaline Phosphatase 80 U/L (38-126); Aspartate Amino Transferase 25 U/L (17-59); Bilirubin,Total 0.6 mg/dl (0.2-1.3); Blood Urea Nitrogen 30 mg/dl (9-20); Calcium 8.2 mg/dl (8.4-10.2); Carbon Dioxide 21 mmol/L (22.0-30.0); Chloride 107 mmol/L (98-107); Creatinine Clearance Estimated 30 mL/min (50-200); Estimated Glomerular Filt Rate 44 ml/min (>60); GFR (African American) 54 ML/MIN (>60); Globulin 3.2 g/dL (1.3-3.2); Glucose 128 mg/dl (74-100); Magnesium 1.9 mg/dl (1.6-2.3); Sodium 137 mmol/L (136-145); Total Protein,Serum 6.9 g/dl (6.3-8.2)
[2021-03-27 08:15] LABS: Lymphocytes % 13 % (10-50); Monocytes % 3 % (2-9); Neutrophils % 82 % (42-76); Platelet Estimate Normal; RBC Morphology Normal; Total Cells Counted 100
--- NOTE | 2021-03-27 08:17 | HMH.ACPN2 ---
Internal Medicine - PN: Subj *Date: 03/27/21 *Time: 08:17 Interval history: Mr. Webb continues to improve intervally overnight. Decreased oxygen requirement on Vapotherm with appropriate saturations. Continues to have good diuresis over the past 24 hours. Patient remains afebrile. No nausea or vomiting. Denies any confusion, significant cough, chest pain or palpitations. Exam Vital signs and Labs for Last 24 Hours: Temp Pulse Resp BP Pulse Ox 98.2 F 64 20 116/70 95 03/27/21 08:00 03/27/21 08:00 03/27/21 08:00 03/27/21 08:00 03/27/21 08:00 Laboratory Results - last 24 hr 03/25/21 21:10: Urine Color Yellow, Urine Appearance Sl cloudy, Urine pH 5.5, Ur Specific [place] >= 1.030, Urine Protein 1+, Urine Glucose (UA) Negative, Urine Ketones Negative, Urine Blood 3+, Urine Nitrate Negative, Urine Bilirubin Negative, Urine Urobilinogen 0.2, Ur Leukocyte Esterase 1+ A, Urine RBC 20-50, Urine WBC 50-100, Ur Squamous Epith Cells 3-5, Urine Bacteria 4+ 03/26/21 06:19: Hgb 11.3 L D, Total Counted 100, Neutrophils % (Manual) 89 H, Lymphocytes % (Manual) 11, Platelet Estimate Normal, RBC Morphology Normal 03/27/21 06:43: WBC 16.0 H, RBC 3.68 L, Hgb 11.0 L, Hct 33.8 L, MCV 91.9, MCH 29.9, MCHC 32.5, RDW 15.8, Plt Count 215, MPV 7.6, Neut % (Auto) 84.3 H, Lymph % (Auto) 11.9, [place] % (Auto) 3.5, Eos % (Auto) 0.2, Baso % (Auto) 0.1, Neut # (Auto) 13.5 H, Lymph # (Auto) 1.9, [place] # (Auto) 0.6, Eos # (Auto) 0.0, Baso # (Auto) 0.0, Total Counted 100, Neutrophils % (Manual) 82 H, Band Neutrophils % 1.0, Lymphocytes % (Manual) 13, Monocytes % (Manual) 3, Metamyelocytes % 1.0, Platelet Estimate Normal, RBC Morphology Normal 03/27/21 06:43: Sodium 137, Potassium 4.0, Chloride 107, Carbon Dioxide 21 L D, Anion Gap 13.0, BUN 30 H D, Creatinine 1.50 H D, Estimated Creat Clear 30, Estimated GFR 44 L, Est GFR ( Amer) 54 L D, Glucose 128 H, Calcium 8.2 L, Magnesium 1.9, Total Bilirubin 0.6, AST 25, ALT 18 D, Alkaline Phosphatase 80, Total Protein 6.9, Albumin 3.7, Globulin 3.2, Albumin/Globulin Ratio 1.2 I & O for Last 24 hours: Intake & Output 03/24/21 03/25/21 03/26/21 03/27/21 23:59 23:59 23:59 23:59 Intake Total 1450 / 2700 3208 / 3208 240 / 240 Output Total 2200 / 2600 400 / 400 Balance 1450 / 2700 1008 / 608 -160 / -160 Weight 58.967 kg 58 kg 59.137 kg Microbiology Reports for the Last 24 Hours: Microbiology 03/25/21 21:10 Urine,Catheterized Urine Culture - Final Escherichia coli Narrative: - Constitutional Minimal distress, thin/cachectic, chronically ill appearing, cooperative - *Routine HEENT Exam Head: Present: normocephalic Eye: Present: EOMI, PERRL ENT: Present: mucous membranes moist Comments: Bitemporal wasting - *Routine Neck Exam Present: supple. Absent: lymphadenopathy - *Routine Respiratory Exam Present: Interval improvement in work of breathing, continues to have wheezes, crackles most prominent in right lower lobe, diminished air movement. No rhonchi - *Routine Cardiovascular Exam Present: RRR - *Routine Abdominal Exam Present: soft, normoactive bowel sounds. Absent: tenderness Comments: Scaphoid - *Routine Extremities Exam Absent: cyanosis, clubbing, edema - *Routine Skin Exam Present: warm. Absent: rash - *Routine Neurological Exam Present: alert, oriented X3 Assessment and Plan (1) NYHA class 4 acute on chronic systolic heart failure Status: Acute Category: Medical Code(s): I50.23 - Acute on chronic systolic (congestive) heart failure (2) Acute hypoxemic respiratory failure Status: Acute Category: Medical Code(s): J96.01 - Acute respiratory failure with hypoxia (3) Community acquired pneumonia Status: Acute Qualifiers: Laterality: right Lung location: lower lobe of lung Qualified Code(s): J18.9 - Pneumonia, unspecified organism Category: Medical Code(s): J18.9 - Pneumonia, unspecified organism
--- NOTE | 2021-03-27 10:12 | HMH.DCSUM ---
General - General Admission date:: 03/26/21 Discharge date: 03/27/21 HPI HPI: Mr. Webb is an 85-year-old white male with history of failure to thrive, systolic heart failure, chronic anemia, who presented to the ER yesterday with progressive shortness of breath and weakness for the past few days. Of note, he was seen in October due to failure to thrive and progressive weight loss. Has been at home on hospice. Came in today with family due to concern for respiratory distress. Patient noted to have significant hypoxemia and respiratory acidosis. Was started on Vapotherm in the ER. Work-up concerning for UTI, right lower lobe pneumonia, leukocytosis, and ROMI. Meeting criteria for severe sepsis. Started on IV antibiotics, IV fluids, and cultures obtained per protocol. Admitted to medicine for further management. On exam this morning, patient appears comfortable on Vapotherm has been able to wean down on settings. Tolerating breakfast, pleasant and oriented on interview. Complains of small shortness of breath but denies chest pain, nausea, vomiting, diarrhea. No headache or altered mental status. Hospital Course Hospital Course: 85 yo M with multiple chronic health issues on Hospice at home who presented with Pneumonia, CHF exacerbation, and UTI. With therapeutic acute hypoxemic respiratory failure. Patient has remained stable and improved with decreasing oxygen requirements. Additionally found to have ROMI on presentation. Responding well to current treatment. Initially treated with supplemental oxygen via Vapotherm. Able to wean off oxygen fairly rapidly during hospitalization. This morning patient is off oxygen and stable on room air with saturations in the mid 90s. Denies any respiratory distress. -Tolerating antibiotics for UTI and pneumonia. Completed 3 days of azithromycin with third dose this afternoon. Will continue with 4 more additional days of clindamycin and cefdinir for pneumonia and UTI coverage. Transition to oral medications for completion at home -Hypothyroid, TSH elevated on presentation, increase levothyroxine to 100 mcg daily. We will continue this at home as well Tolerating good p.o. intake. Patient medically stable for discharge back home in the care of hospice. Has shown rapid progression to current treatment. See med rec for full medication recommendations. Holding diuretic until completion of antibiotics, resume thereafter. Clark was discontinued morning of discharge with patient urinating independently Examined on day of discharge, patient requesting to go home. Feel he is medically stable given his discontinued need for oxygen and ability to transition all therapies to oral. Objective Vital signs: Temp Pulse Resp BP Pulse Ox 98.2 F 64 20 116/70 94 L 03/27/21 08:00 03/27/21 08:15 03/27/21 08:15 03/27/21 08:00 03/27/21 08:19 Narrative: - Constitutional No acute distress, thin/cachectic, chronically ill appearing, cooperative - *Routine HEENT Exam Head: Present: normocephalic Eye: Present: EOMI, PERRL ENT: Present: mucous membranes moist Comments: Bitemporal wasting - *Routine Neck Exam Present: supple. Absent: lymphadenopathy - *Routine Respiratory Exam Present: On room air, significant improvement in wheezes and crackles. Faint crackles right lower lobe. Improvement in air movement bilaterally. No rhonchi - *Routine Cardiovascular Exam Present: RRR - *Routine Abdominal Exam Present: soft, normoactive bowel sounds. Absent: tenderness Comments: Scaphoid - *Routine Extremities Exam Absent: cyanosis, clubbing, edema - *Routine Skin Exam Present: warm. Absent: rash - *Routine Neurological Exam Present: alert, oriented X3 Results Labs on day of discharge: Labs from last 24 hours 03/27/21 03/27/21 03/26/21 06:43 06:43 06:19 WBC 16.0 H RBC 3.68 L Hgb 11.0 L 11.3 L D Hct 33.8 L MCV 91.9 MCH 29.9
--- NOTE | 2021-03-27 15:14 | HMH.ACPN2 ---
Internal Medicine - PN: Subj *Date: 03/27/21 *Time: 15:14 Interval history: Mr. Webb did well overnight and was able to wean off oxygen this morning. Stable on room air when rounded on him this morning. Up to bedside chair with assistance. Continues to be quite weak and fatigued. Eating fairly well however. Denies any fevers, nausea or vomiting. Has had some loose stools today but family reports he normally has multiple stools a day which she considers to be regular . Does not complain of any chest pain or shortness of breath. Alert and oriented. Extensive discussion with POA about goals of care for patient today. Concern for his wellbeing as he lives by himself and has struggled with medication management and self-care in the past. Reviewed labs this morning, kidney function slightly worse with bump in creatinine today. Exam Vital signs and Labs for Last 24 Hours: Temp Pulse Resp BP Pulse Ox 98.5 F 71 22 105/71 L 99 03/27/21 11:51 03/27/21 11:51 03/27/21 11:51 03/27/21 11:51 03/27/21 11:51 Laboratory Results - last 24 hr 03/27/21 06:43: WBC 16.0 H, RBC 3.68 L, Hgb 11.0 L, Hct 33.8 L, MCV 91.9, MCH 29.9, MCHC 32.5, RDW 15.8, Plt Count 215, MPV 7.6, Neut % (Auto) 84.3 H, Lymph % (Auto) 11.9, [place] % (Auto) 3.5, Eos % (Auto) 0.2, Baso % (Auto) 0.1, Neut # (Auto) 13.5 H, Lymph # (Auto) 1.9, [place] # (Auto) 0.6, Eos # (Auto) 0.0, Baso # (Auto) 0.0, Total Counted 100, Neutrophils % (Manual) 82 H, Band Neutrophils % 1.0, Lymphocytes % (Manual) 13, Monocytes % (Manual) 3, Metamyelocytes % 1.0, Platelet Estimate Normal, RBC Morphology Normal 03/27/21 06:43: Sodium 137, Potassium 4.0, Chloride 107, Carbon Dioxide 21 L D, Anion Gap 13.0, BUN 30 H D, Creatinine 1.50 H D, Estimated Creat Clear 30, Estimated GFR 44 L, Est GFR ( Amer) 54 L D, Glucose 128 H, Calcium 8.2 L, Magnesium 1.9, Total Bilirubin 0.6, AST 25, ALT 18 D, Alkaline Phosphatase 80, Total Protein 6.9, Albumin 3.7, Globulin 3.2, Albumin/Globulin Ratio 1.2 I & O for Last 24 hours: Intake & Output 03/24/21 03/25/21 03/26/21 03/27/21 23:59 23:59 23:59 23:59 Intake Total 1450 / 2700 3208 / 3208 360 / 360 Output Total 2200 / 2600 500 / 500 Balance 1450 / 2700 1008 / 608 -140 / -140 Weight 58.967 kg 58 kg 59.137 kg Microbiology Reports for the Last 24 Hours: Microbiology 03/25/21 21:10 Urine,Catheterized Urine Culture - Final Escherichia coli Narrative: - Constitutional No acute distress, thin/cachectic, chronically ill appearing, cooperative - *Routine HEENT Exam Head: Present: normocephalic Eye: Present: EOMI, PERRL ENT: Present: mucous membranes moist Comments: Bitemporal wasting - *Routine Neck Exam Present: supple. Absent: lymphadenopathy - *Routine Respiratory Exam Present: On room air, significant improvement in wheezes and crackles. Faint crackles right lower lobe. Improvement in air movement bilaterally. No rhonchi - *Routine Cardiovascular Exam Present: RRR - *Routine Abdominal Exam Present: soft, normoactive bowel sounds. Absent: tenderness Comments: Scaphoid - *Routine Extremities Exam Absent: cyanosis, clubbing, edema - *Routine Skin Exam Present: warm. Absent: rash - *Routine Neurological Exam Present: alert, oriented X3 Assessment and Plan (1) NYHA class 4 acute on chronic systolic heart failure Status: Acute Category: Medical Code(s): I50.23 - Acute on chronic systolic (congestive) heart failure (2) Acute hypoxemic respiratory failure Status: Acute Category: Medical Code(s): J96.01 - Acute respiratory failure with hypoxia (3) Community acquired pneumonia Status: Acute Qualifiers: Laterality: right Lung location: lower lobe of lung Qualified Code(s): J18.9 - Pneumonia, unspecified organism Category: Medical Code(s): J18.9 - Pneumonia, unspecified organism (4) UTI (urinary tract infection) Status: Acute Qualifiers:
--- NOTE | 2021-03-27 15:34 | PC.NURSE ---
Pt has been pleasant and cooperative this shift. A&O X4. No complaints of pain. No N/V. Pt is currently on room air with sats. >90%. Lung sounds reveal fine crackles. No edema noted. Skin is C/D/I. Pt ambulates with stand-by assistance to/from the bathroom and throughout the room. Pt has sat up in the recliner for the majority of the day. F/C D/C'd this AM and pt uses the urinal to void clear, yellow urine without issue. 1 small, soft, brown BM today. Appetite is fair and pt eats about 50-75% of all meals. Pt has been instructed to provide a sputum sample and a specimen cup is at bedside. 20 G peripheral IV in the LT AC is patent and SL. 20 G peripheral IV in the LT wrist is patent and infusing NS @ 50 ML/HR. VSS. Call light within reach. Will continue to monitor.
--- NOTE | 2021-03-27 15:37 | PC.NURSE ---
Pt has been pleasant and cooperative this shift. A&O X4. No complaints of pain. No N/V. Pt is currently on room air with sats. >90%. Lung sounds reveal fine crackles. No edema noted. Skin is C/D/I. Pt ambulates with stand-by assistance to/from the bathroom and throughout the room. Pt has sat up in the recliner for the majority of the day. F/C D/C'd this AM and pt uses the urinal to void clear, yellow urine without issue. 1 small, soft, brown BM today. Appetite is fair and pt eats about 50-75% of all meals. Pt has been instructed to provide a sputum sample and a specimen cup is at bedside. 20 G peripheral IV in the LT AC is patent and SL. 20 G peripheral IV in the LT wrist is patent SL. VSS. Call light within reach. Will continue to monitor.
[2021-03-28] VITALS: BP 110/75; PULSE 70; RESP 24; TEMP 36.5; O2SAT 91
--- NOTE | 2021-03-28 03:27 | PC.NURSE ---
No acute changes overnight. Pt A&O. No c/o pain this shift. Pt has rested well. Lungs have some scattered crackles, on room air. Bowel sounds x4, abd soft and nontender. Pt has ambulated with a walker to the bathroom with stand by assist. Tolerates well. Skin is CDI. IV patent, SL. VSS, call light in reach, no concerns at this time.
[2021-03-28 04:00] VITALS: BP 116/76; PULSE 83; RESP 24; TEMP 36.4; O2SAT 91
[2021-03-28 05:00] VITALS: BMI 21.4
[2021-03-28 06:50] LABS: Basophils % 0.1 % (0.1-2.0); Eosinophils # 0.1 K/mm3 (0.0-0.4); Eosinophils % 0.3 % (0.1-12.0); Hematocrit 30.7 % (42.0-52.0); Hemoglobin 10.3 g/dL (14.1-18.0); Lymphocytes % 12.2 % (10-50); Mean Corpuscular HGB Conc 33.6 g/dL (31.8-35.4); Mean Corpuscular Hemoglobin 30.3 pg (27.0-31.2); Mean Corpuscular Volume 90.3 fl (80-94); Mean Platelet Volume 8.4 fl (7.4-10.4); Monocytes # 0.8 K/mm3 (0.1-1.0); Monocytes % 5.1 % (1.7-9.3); Neutrophils # 13.5 K/mm3 (1.8-7.8); Neutrophils % 82.4 % (37.0-80.0); Platelet Count 218 K/mm3 (142-424); White Blood Count 16.4 K/mm3 (4.8-10.8)
[2021-03-28 06:57] LABS: MANUAL DIFFERENTIAL MANUAL DIFFERENTIAL (MANUAL DIFF)
[2021-03-28 07:02] LABS: Anion Gap 12.7 mEq/L (5-15); Blood Urea Nitrogen 34 mg/dl (9-20); Calcium 7.9 mg/dl (8.4-10.2); Carbon Dioxide 19 mmol/L (22.0-30.0); Chloride 108 mmol/L (98-107); Creatinine Clearance Estimated 35 mL/min (50-200); Estimated Glomerular Filt Rate 52 ml/min (>60); GFR (African American) 63 ML/MIN (>60); Glucose 103 mg/dl (74-100); Potassium 3.7 mmoL/L (3.5-5.1); Sodium 136 mmol/L (136-145)
[2021-03-28 07:50] LABS: Lymphocytes % 16 % (10-50); Monocytes % 4 % (2-9); Neutrophils % 75 % (42-76); Platelet Estimate Normal; RBC Morphology Normal; Total Cells Counted 100
[2021-03-28 08:00] VITALS: BP 123/74; PULSE 94; RESP 24; TEMP 36.6; O2SAT 97
--- NOTE | 2021-03-28 08:23 | HMH.ACPN2 ---
Internal Medicine - PN: Subj *Date: 03/28/21 *Time: 09:30 Interval history: pt has done well overnight. Tolerating good PO intake. Remains afebrile. Ambulating with walker. denies SOA, CP, LOTT< N/V. some loose stool yesterday after stool softener. hemodynamically stable. Exam Vital signs and Labs for Last 24 Hours: Temp Pulse Resp BP Pulse Ox 97.9 F 94 H 24 123/74 97 03/28/21 08:00 03/28/21 08:00 03/28/21 08:00 03/28/21 08:00 03/28/21 08:00 Laboratory Results - last 24 hr 03/28/21 06:40: WBC 16.4 H, RBC 3.40 L, Hgb 10.3 L, Hct 30.7 L, MCV 90.3, MCH 30.3, MCHC 33.6, RDW 16.0, Plt Count 218, MPV 8.4, Neut % (Auto) 82.4 H, Lymph % (Auto) 12.2, [place] % (Auto) 5.1, Eos % (Auto) 0.3, Baso % (Auto) 0.1, Neut # (Auto) 13.5 H, Lymph # (Auto) 2.0, [place] # (Auto) 0.8, Eos # (Auto) 0.1, Baso # (Auto) 0.0, Total Counted 100, Neutrophils % (Manual) 75, Band Neutrophils % 4.0, Lymphocytes % (Manual) 16, Monocytes % (Manual) 4, Metamyelocytes % 1.0, Platelet Estimate Normal, RBC Morphology Normal 03/28/21 06:40: Sodium 136, Potassium 3.7, Chloride 108 H, Carbon Dioxide 19 L, Anion Gap 12.7, BUN 34 H, Creatinine 1.30 H, Estimated Creat Clear 35, Estimated GFR 52 L, Est GFR ( Amer) 63, Glucose 103 H, Calcium 7.9 L, Magnesium 2.0 I & O for Last 24 hours: Intake & Output 03/25/21 03/26/21 03/27/21 03/28/21 23:59 23:59 23:59 23:59 Intake Total 1450 / 2700 3208 / 3208 700 / 700 120 / 120 Output Total 2200 / 2600 575 / 575 100 / 100 Balance 1450 / 2700 1008 / 608 125 / 125 20 / 20 Weight 58.967 kg 58 kg 59.137 kg 60.328 kg Microbiology Reports for the Last 24 Hours: Microbiology 03/25/21 21:00 Blood Blood Culture - Preliminary NO GROWTH AFTER 48 HOURS 03/25/21 21:00 Blood Blood Culture - Preliminary NO GROWTH AFTER 48 HOURS 03/25/21 21:10 Urine,Catheterized Urine Culture - Final Escherichia coli Narrative: - Constitutional No acute distress, thin/cachectic, chronically ill appearing, cooperative - *Routine HEENT Exam Head: Present: normocephalic Eye: Present: EOMI, PERRL ENT: Present: mucous membranes moist Comments: Bitemporal wasting - *Routine Neck Exam Present: supple. Absent: lymphadenopathy - *Routine Respiratory Exam Present: On room air, significant improvement in wheezes and crackles. Faint crackles right lower lobe. Improvement in air movement bilaterally. No rhonchi - *Routine Cardiovascular Exam Present: RRR - *Routine Abdominal Exam Present: soft, normoactive bowel sounds. Absent: tenderness Comments: Scaphoid - *Routine Extremities Exam Absent: cyanosis, clubbing, edema - *Routine Skin Exam Present: warm. Absent: rash - *Routine Neurological Exam Present: alert, oriented X3 Assessment and Plan (1) NYHA class 4 acute on chronic systolic heart failure Status: Acute Category: Medical Code(s): I50.23 - Acute on chronic systolic (congestive) heart failure (2) Acute hypoxemic respiratory failure Status: Acute Category: Medical Code(s): J96.01 - Acute respiratory failure with hypoxia (3) Community acquired pneumonia Status: Acute Qualifiers: Laterality: right Lung location: lower lobe of lung Qualified Code(s): J18.9 - Pneumonia, unspecified organism Category: Medical Code(s): J18.9 - Pneumonia, unspecified organism (4) UTI (urinary tract infection) Status: Acute Qualifiers: Urinary tract infection type: site unspecified Hematuria presence: without hematuria Qualified Code(s): N39.0 - Urinary tract infection, site not specified Category: Medical Code(s): N39.0 - Urinary tract infection, site not specified (5) Protein-calorie malnutrition, severe Status: Acute Category: Medical Code(s): E43 - Unspecified severe protein-calorie malnutrition (6) Hypertensive heart disease without heart failure Status: Chronic C
[2021-03-28 08:26] VITALS: PULSE 70; PULSE 72
[2021-03-28 11:30] VITALS: BP 155/84; PULSE 79; RESP 18; TEMP 36.7; O2SAT 94
--- NOTE | 2021-03-28 12:35 | HMH.PTEV ---
Physical Therapy Evaluation Rehab PT IP Evaluation Start: 03/27/21 15:15 Freq: ONCE Status: Active Protocol: Document 03/28/21 12:32 BEBEHEIDI (Rec: 03/28/21 12:35 [email or web address] [id number]) Subjective/History History History PT ADMITTED TO [facility] 85 YO MALE W/CAP, CHF, SEPSIS, GENERALIZED WEAKNESS Subjective Subjective PT REPORTS NO PAIN AND NO PROBLEMS THIS PM, 'READY TO GO HOME'. Rehab PT IP Eval Objective Appearance Patient Behavior Appropriate,Cooperative Patient Orientation Person,Place,Time,Name,Age, Birthday Difficulty following instructions none Speech Pattern Clear,Appropriate Ambulation Patient Able to Ambulate Yes Ambulation Observation IP General Gait Pattern Observation No Deviations/Normal Ambulation Distance (feet) 30 Ambulation Assistive Device Rolling Walker Ambulation Ability Supervision/Stand by Balance Ability to Arise Able, uses arms to help Sitting Balance Steady, safe Standing Balance Steady, wide stance Dynamic Sitting Balance Ability Normal Dynamic Standing Balance Ability Good Transfers Bed Transfer Ability Independent Sit to Stand Bed Transfer Ability Supervision/Stand by Sit to Stand Chair Transfer Ability Supervision/Stand by ROM All Extremities PT ROM Status WFL MMT All Extremities PT MMT WFL Rehab PT IP prob,goals,plan Problems Date of Evaluation: 03/28/21 Other Pt Problem NA Rehab Potential Rehab Potential Innapropriate for Skilled Therapy Equipment Needs Assistive Devices None / NA Plan Other Intervention Plan PT TO D/C TO HOME Discharge Plan PT Discharge Plan PT TO D/C TO HOME G -code Required No Eval Complexity Eval Charge Codes 03080 - Low Complexity PHYSICIAN CERTIFICATION: I certify the specified therapy services for Jeison Webb are required, authorized, and reviewed every 30 days.
[2021-03-28 12:55] VITALS: PULSE 70; O2SAT 90
== END 2021-03-28 14:45 | disposition hospice, home (50) | DRG 871 ==
LOC: ER 21:13 → 2ND 23:35
PROVIDERS: Admitting Provider Internal Medicine Adolescent Medicine; Emergency Provider Emergency Medicine; PCP Internal Medicine Adolescent Medicine; Visit Provider Internal Medicine Adolescent Medicine
DX: A41.9 Sepsis, unspecified organism (principal); J18.9 Pneumonia, unspecified organism; J96.01 Acute respiratory failure with hypoxia; E43 Unspecified severe protein-calorie malnutrition; I21.4 Non-ST elevation (NSTEMI) myocardial infarction; I50.23 Acute on chronic systolic (congestive) heart failure; N39.0 Urinary tract infection, site not specified; Z20.822 Contact with and (suspected) exposure to COVID-19; I42.9 Cardiomyopathy, unspecified; N17.9 Acute kidney failure, unspecified; R65.20 Severe sepsis without septic shock; I11.0 Hypertensive heart disease with heart failure; Z88.0 Allergy status to penicillin; I25.10 Atherosclerotic heart disease of native coronary artery without angina pectoris; E78.5 Hyperlipidemia, unspecified; Z95.0 Presence of cardiac pacemaker; I25.2 Old myocardial infarction; E03.9 Hypothyroidism, unspecified; Z95.1 Presence of aortocoronary bypass graft; Z89.021 Acquired absence of right finger(s); Z87.891 Personal history of nicotine dependence; Z68.24 Body mass index [BMI] 24.0-24.9, adult
CPT/HCPCS: 36415; 71045; 80048; 80053; 81001; 82803; 82962; 83605; 83735; 83880; 84436; 84443; 84484; 85007; 85025; 85651; 86140; 87040; 87086; 87088; 87186; 87581; 87633; 87798; 93005; 93306; 94640; 96365; 96367; 96375; 97161; 99285; J0456

== ENCOUNTER 2021-05-13 20:00 | Inpatient (IN) | payer OTHER, MEDICARE, SELFPAY ==
[2021-05-13 20:01] VITALS: BP 143/96; PULSE 71; RESP 18; TEMP 37.2; O2SAT 98; BMI 22.8
--- NOTE | 2021-05-13 20:13 | XR_ITS ---
PROCEDURE INFORMATION: Exam: XR Chest Exam date and time: 05/13/2021 8:13 PM Age: 85 years old Clinical indication: Shortness of breath and other: Productive cough; Patient HX: SOB productive cough; Additional info: Shortness of air TECHNIQUE: Imaging protocol: XR of the chest. Views: 1 view. COMPARISON: CR XR CHEST PORTABLE 03/25/2021 9:26 PM FINDINGS: Lungs: Pulmonary vascular congestion noted. [id number] interstitial edema. Pleural spaces: Unremarkable. No pleural effusion. No pneumothorax. Heart/Mediastinum: Sternotomy wires and pacer are unchanged. Heart remains enlarged. Bones/joints: Left shoulder fracture/dislocation is similar to prior IMPRESSION: Findings compatible with CHF
--- NOTE | 2021-05-13 20:18 | HMH.EDSOB ---
ED Disposition Clinical Impression: Acute exacerbation of chronic obstructive airways disease, Acute on chronic systolic CHF (congestive heart failure), Pacemaker, Renal insufficiency Disposition: Admitted As Inpatient Condition on Discharge: Fair Referrals: Franky Hernadez MD [Primary Care Provider] - - Critical Care Critical Care Time: No Attestation: On , the high probability of a clinically significant, sudden or life threatening deterioration of the following system(s) required my full and direct attention, intervention and personal management. The time I documented below is in addition to time spent performing reported procedures but includes the following listed in this critical care notation. Medical Decision Making - Medical Records Medical records reviewed: Yes: I reviewed the patient's medical records. - Yaniv Inquiry Pt receiving controlled substance: No Vital Signs: 05/13/21 20:01 05/13/21 20:30 05/13/21 20:32 Temperature 99.0 F Temperature Source Rectal Pulse Rate 70 68 Pulse Rate [Right Brachial] 71 Respiratory Rate 18 Blood Pressure 130/85 Blood Pressure [Right Arm] 143/96 H Blood Pressure Mean 100 Blood Pressure Mean [Right Arm] 111 Blood Pressure Source [Right Arm] Automatic Cuff Blood Pressure Position [Right Arm] Sitting 02 Sat by Pulse Oximetry 98 92 L Oxygen Delivery Method Room Air Nasal Cannula Oxygen Flow Rate (LPM) 4 - Lab Data Lab results reviewed: Yes: I reviewed the patient's lab results. Lab Results 05/13/21 20:07: WBC 16.4 H, RBC 4.21 L, Hgb 12.7 L, Hct 39.3 L, MCV 93.3, MCH 30.1, MCHC 32.3, RDW 15.8, Plt Count 212, MPV 8.5, Neut % (Auto) 71.2, Lymph % (Auto) 22.8, [place] % (Auto) 3.4, Eos % (Auto) 2.0, Baso % (Auto) 0.7, Neut # (Auto) 11.7 H, Lymph # (Auto) 3.7, [place] # (Auto) 0.6, Eos # (Auto) 0.3, Baso # (Auto) 0.1, Total Counted 100, Neutrophils % (Manual) 67, Lymphocytes % (Manual) 21, Monocytes % (Manual) 6, Eosinophils % (Manual) 6 H, Platelet Estimate Normal, Spherocytes 1+ 05/13/21 20:07: Sodium 136, Potassium 4.6, Chloride 101, Carbon Dioxide 23, Anion Gap 16.6 H, BUN 21 H, Creatinine 1.50 H, Estimated Creat Clear 36, Estimated GFR 44 L, Est GFR ( Amer) 54 L, Glucose 201 H, Calcium 8.5, Total Bilirubin 0.8, AST 32, ALT 14, Alkaline Phosphatase 95, Troponin I < 0.01, C-Reactive Protein 11.0 H, NT-Pro-B Natriuret Pep 9890 H, Total Protein 7.6, Albumin 4.3, Globulin 3.3 H, Albumin/Globulin Ratio 1.3 05/13/21 20:07: Lactate 2.4 H 05/13/21 20:07: ESR 28 H 05/13/21 20:26: Specimen Source Right radial, O2 % 4lpm, ABG pH 7.25 L, ABG pCO2 46.9 H, ABG pO2 64.6 L, ABG HCO3 20.2 L, ABG Total CO2 21.6 L, ABG O2 Saturation 89 L, ABG Base Excess -7.1 L, Daniel Test Non applicable Result diagrams: 05/13/21 20:07 05/13/21 20:07 Orders (Tests/Meds): ED MEDICATIONS Generic Name Dose Route Start Last Admin Trade Name Freq PRN Reason Stop Dose Admin Sodium Chloride 1,000 mls @ 999 mls/hr 05/13/21 20:45 05/13/21 20:48 Sod Chlor 0.9% 1000ml Bag IV 05/13/21 21:45 999 mls/hr .Q1H1M ALEXANDRO Administration Discontinued Medications Generic Name Dose Route Start Last Admin Trade Name Freq PRN Reason Stop Dose Admin Albuterol/Ipratropium 3 ml 05/13/21 20:18 05/13/21 20:31 Ipratropium/Albuterol 3 Ml Neb IH 05/13/21 20:19 3 ml ONCE ONE Administration Furosemide 40 mg 05/13/21 21:00 05/13/21 21:01 Furosemide 40mg/4ml Vial IV 05/13/21 21:01 40 mg ONCE ONE Administration Methylprednisolone Sodium Succinate 125 mg 05/13/21 20:44 05/13/21 20:48 Methylprednisolone Sod Succ 125mg Vial IV 05/13/21 20:45 125 mg ONCE ONE Administration ORDERS Category Date Time Status Procalcitonin Stat Lab 05/13/21 20:07 Received Rapid PCR Covid and Flu A/B Stat Lab 05/13/21 20:13 Ordered T4 (Thyroxine) Stat Lab 05/13/21 20:07 Received TSH [Thyroid Stimulating Hormone] Stat Lab 05/13/21 20:07 Received Troponin I Q3H Lab 07
--- NOTE | 2021-05-13 20:28 | ECG_ITS ---
APPROVED REPORT Exam: Resting ECG HR:73 bpm ECG Measurements Heart Rate 73 AXES QRSd 184 QRS 224 QT 466 T 82 QTc 513 Conclusion AV sequential or dual chamber electronic pacemaker Electronically signed by : Franky Hernadez, 05/14/2021 21:36:39
[2021-05-13 20:29] LABS: ABG Base Excess -7.1 mmol/L (-2.4-2.3); ABG HCO3 20.2 mmhg (22.0-26.0); ABG Oxygen Saturation 89 % (90-100); ABG PCO2 46.9 mmhg (35.0-45.0); ABG PH 7.25 mmol/L (7.35-7.45); ABG PO2 64.6 mmhg (80-100); ABG TCO2 21.6 mmhg (23-27)
[2021-05-13 20:30] VITALS: BP 130/85; PULSE 70
[2021-05-13 20:30] LABS: Allen's Test Non Applicable; Oxygen 4LPM %; Source Right Radial
[2021-05-13 20:32] VITALS: PULSE 68; PULSE 71; O2SAT 92
[2021-05-13 20:32] LABS: Basophils # 0.1 K/mm3 (0-0.2); Basophils % 0.7 % (0.1-2.0); Eosinophils # 0.3 K/mm3 (0.0-0.4); Hematocrit 39.3 % (42.0-52.0); Hemoglobin 12.7 g/dL (14.1-18.0); Lymphocytes # 3.7 K/mm3 (0.7-4.5); Lymphocytes % 22.8 % (10-50); Mean Corpuscular HGB Conc 32.3 g/dL (31.8-35.4); Mean Corpuscular Hemoglobin 30.1 pg (27.0-31.2); Mean Corpuscular Volume 93.3 fl (80-94); Mean Platelet Volume 8.5 fl (7.4-10.4); Monocytes # 0.6 K/mm3 (0.1-1.0); Monocytes % 3.4 % (1.7-9.3); Neutrophils # 11.7 K/mm3 (1.8-7.8); Neutrophils % 71.2 % (37.0-80.0); Platelet Count 212 K/mm3 (142-424); Red Blood Count 4.21 M/mm3 (4.60-6.20); Red Cell Distribution Width 15.8 % (11.5-17.5); White Blood Count 16.4 K/mm3 (4.8-10.8)
[2021-05-13 20:39] LABS: Lactic Acid 2.4 mmol/L (0.7-2.1)
[2021-05-13 20:40] LABS: MANUAL DIFFERENTIAL MANUAL DIFFERENTIAL (MANUAL DIFF)
[2021-05-13 20:45] LABS: Alanine Aminotransferase 14 U/L (12-78); Albumin Level 4.3 g/dl (3.5-5.0); Albumin/Globulin Ratio 1.3 (1.1-1.8); Alkaline Phosphatase 95 U/L (38-126); Anion Gap 16.6 mEq/L (5-15); Aspartate Amino Transferase 32 U/L (17-59); Bilirubin,Total 0.8 mg/dl (0.2-1.3); Blood Urea Nitrogen 21 mg/dl (9-20); Calcium 8.5 mg/dl (8.4-10.2); Carbon Dioxide 23 mmol/L (22.0-30.0); Chloride 101 mmol/L (98-107); Creatinine Clearance Estimated 36 mL/min (50-200); Estimated Glomerular Filt Rate 44 ml/min (>60); GFR (African American) 54 ML/MIN (>60); Globulin 3.3 g/dL (1.3-3.2); Glucose 201 mg/dl (74-100); Potassium 4.6 mmoL/L (3.5-5.1); Sodium 136 mmol/L (136-145); Total Protein,Serum 7.6 g/dl (6.3-8.2)
[2021-05-13 20:54] LABS: NT Pro Brain Natriuretic Pep. 9890 pg/mL (0-450)
[2021-05-13 20:58] LABS: Eosinophils % 6 % (0-3); Lymphocytes % 21 % (10-50); Monocytes % 6 % (2-9); Neutrophils % 67 % (42-76); Total Cells Counted 100
[2021-05-13 20:59] LABS: Platelet Estimate Normal; Spherocytes 1+
[2021-05-13 21:06] LABS: Erythrocyte Sedimentation Rate 28 mm/hr (0-20); Troponin I < 0.01 ng/ml (0.00-0.034)
[2021-05-13 21:10] LABS: Procalcitonin 0.074 ng/mL (0.0-2.0)
[2021-05-13 21:14] LABS: T4 (Thyroxine) 9.3 ug/dl (5.53-11.0)
[2021-05-13 21:17] LABS: Coronavirus 19, PCR Not Detected (NotDetected); Influenza A, PCR Not Detected (NotDetected); Influenza B, PCR Not Detected (NotDetected)
--- NOTE | 2021-05-13 21:24 | PC.NURSE ---
Fluid stopped after 500ml infused.
--- NOTE | 2021-05-13 21:49 | PC.NURSE ---
called for admit to registration
[2021-05-13 22:16] VITALS: BP 113/68; PULSE 70; RESP 25; TEMP 37.2; O2SAT 97
--- NOTE | 2021-05-13 22:32 | PC.NURSE ---
ccollar removed per md verbal order. received critical finding from vrad of a lung mass. vrad spoke with .
[2021-05-13 22:36] VITALS: BP 110/56; PULSE 70; RESP 24; TEMP 35.7; O2SAT 92; BMI 18.3
--- NOTE | 2021-05-13 22:36 | PC.NURSE ---
patient up to floor via stretcher.
[2021-05-13 22:47] VITALS: PULSE 70
[2021-05-14] VITALS: BP 120/80; PULSE 70; PULSE 74; RESP 17; TEMP 36; O2SAT 95
[2021-05-14 00:34] LABS: Reflex Lactic Add Lactic Reflex
[2021-05-14 00:36] LABS: Troponin I < 0.01 ng/ml (0.00-0.034)
[2021-05-14 00:45] LABS: Lactic Acid Follow Up (RFLX 1) 0.9 mmol/L (0.7-2.1)
[2021-05-14 02:49] LABS: Troponin I 0.02 ng/ml (0.00-0.034)
[2021-05-14 04:00] VITALS: BP 103/61; PULSE 70; PULSE 80; RESP 17; TEMP 36.3; O2SAT 99
[2021-05-14 05:00] VITALS: BMI 18.3
[2021-05-14 06:13] VITALS: PULSE 72; PULSE 78; O2SAT 95
--- NOTE | 2021-05-14 06:28 | PC.NURSE ---
upon arrival to floor unable to get oral and auxiliary temperature; Rectal temperature 96.3 F. Applied warm blankets throughout shift and oral temp this morning was 97.4 F. Patient has shown no s/s of acute distress this shift. Call light within reach, bed at lowest level for safety; will continue to monitor.
--- NOTE | 2021-05-14 07:14 | HMH.PHAVTE ---
[facility] Pharmacy VTE Monitoring - Patient Demographics Admission date: 05/13/21 Report Date: 05/14/21 Time: 07:14 Allergies/Adverse Reactions: Patient Allergies Penicillins Allergy (Intermediate, Verified 04/23/20 10:39) I-RASH, ITCHING Height: 1.75 m Weight: 56.302 kg Patient Problems: Current Active Problems Acute exacerbation of chronic obstructive airways disease (Acute) Pacemaker (Acute) Renal insufficiency (Acute) Acute on chronic systolic CHF (congestive heart failure) (Acute) - VTE Risk Labs: VTE Related Lab Results Hgb 12.7 g/dL (14.1-18.0) L 05/13/21 20:07 Hct 39.3 % (42.0-52.0) L 05/13/21 20:07 Plt Count 212 K/mm3 (142-424) 05/13/21 20:07 BUN 21 mg/dl (9-20) H 05/13/21 20:07 Creatinine 1.50 mg/dl (0.66-1.25) H 05/13/21 20:07 Estimated Creat Clear 36 mL/min (50-200) 05/13/21 20:07 - Prophylaxis VTE Prophylaxis Ordered?: Yes Types of VTE Prophylaxis: TEDS Knee High Location of Applied Device: Bilateral Lower Extremeties
--- NOTE | 2021-05-14 07:35 | HMH.HP ---
*Admission Date: 05/13/21 *Chief complaint: shortness of breath *History of present illness: Mr. Webb is an 85-year-old white male with history of failure to thrive, systolic heart failure, chronic anemia, who presented to the ER yesterday with progressive shortness of breath and weakness. This is similar to his last 2 admissions. On Hospice at home. ER via EMS due to concern for worsening shortness of breath. Did not have his oxygen where he was staying. On initial assessment found to have mild hypoxia, mild respiratory acidosis. Started on supplemental oxygen and admitted to medicine for further management. Work-up concerning for UTI, right lower lobe pneumonia, leukocytosis, and ROMI. Meeting criteria for sepsis. Started on IV antibiotics, IV fluids, and cultures obtained per protocol. On exam this morning, patient appears comfortable on Vapotherm has been able to wean down on settings. Tolerating breakfast, pleasant and oriented on interview. Complains of small shortness of breath but denies chest pain, nausea, vomiting, diarrhea. No headache or altered mental status. [facility] History I have reviewed the patient's past medical history: Yes Medical History: Reports:: Aneurysm, Cardiomyopathy, Congestive Heart Failure, Coronary Artery Disease, Hyperlipidemia, Hypertension, Internal Pacemaker, Myocardial Infarction Denies:: Cancer, Diabetes Mellitus Type 1, Diabetes Mellitus Type 2, MRSA, Seizures *Have you ever received a pneumonia vaccine?: Yes *Have you received a flu vaccine this season?: Yes Other Medical History: Reports: Hypothyroidism, Thyroid Disease Other Surgeries: Yes: CABG, Pacemaker Amputation: Yes (RT middle finger) Fractures: No - *Social History Last grade of school completed: High school graduate Smoking Status: Former smoker Tobacco Type: cigarettes # Packs/Day (cigarettes): 5 #Yrs smoked (if former smoker): 40 Alcohol Intake: never Alcohol Intake Frequency:: other Substance Use Type: denies use *Occupational Status:: retired Housing: house Household Members: none *Travel in the last 8 weeks: None Family Hx:: No significant family history Review of Systems - Review of Systems Review of systems:: pertinent systems reviewed and negative unless documented below - *Neurologic Denies headache(s), Denies seizure-like activity Meds Home Medications Medication Instructions Recorded Confirmed Type aspirin 325 mg tablet 325 mg PO DAILY tab 01/04/18 05/13/21 History tamsulosin 0.4 mg capsule 0.4 mg PO HS 04/03/19 05/13/21 History famotidine 20 mg tablet 20 mg PO BID tab 04/10/20 05/13/21 History carvediloL [Carvedilol 12.5mg Tab] 12.5 mg PO BID 11/02/20 05/13/21 History Isosorbide Mononitrate [Isosorbide 30 mg PO BID 03/25/21 05/13/21 History Mononitrate ER] Mirtazapine [Remeron 15mg tablet] 15 mg PO HS 03/25/21 05/13/21 History Sennosides/Docusate Sodium 1 each PO BID 03/25/21 05/13/21 History [Senexon-S Tablet] Furosemide [Lasix 20mg tablet] 20 mg PO DAILYP PRN 03/26/21 05/13/21 History LORazepam [Lorazepam 1mg Tablet] 1 mg PO TID 03/26/21 05/13/21 History Benzonatate [Benzonatate 100mg 100 mg PO Q8HP PRN 5 Days #15 cap 03/27/21 05/13/21 Rx cap] Levothyroxine Sodium [Synthroid 100 mcg PO DAILYDM 05/13/21 05/13/21 History 100mcg (0.1mg) tablet] Allergies Allergy/AdvReac Type Severity Reaction Status Date / Time Penicillins Allergy Intermediate I-RASH, Verified 04/23/20 10:39 ITCHING Exam Vital signs and Labs for Last 24 Hours: Temp Pulse Resp BP Pulse Ox 97.4 F L 72 17 103/61 L 95 05/14/21 04:00 05/14/21 06:13 05/14/21 04:00 05/14/21 04:00 05/14/21 06:13 Laboratory Results - last 24 hr 05/13/21 20:07: WBC 16.4 H, RBC 4.21 L, Hgb 12.7 L, Hct 39.3 L, MCV 93.3, MCH 30.1, MCHC 32.3, RDW 15.8, Plt Count 212, MPV 8.5, Neut % (Auto) 71.2, Lymph % (Auto) 22.8, [place] % (Auto) 3.4, Eos % (Auto) 2.0, Baso % (Auto) 0.7, Neut # (Auto) 11.7 H, Lymph # (Auto) 3
[2021-05-14 08:00] VITALS: BP 133/78; PULSE 60; PULSE 73; RESP 20; TEMP 36.6; O2SAT 95; O2SAT 98
[2021-05-14 08:44] VITALS: BMI 18.3
--- NOTE | 2021-05-14 08:48 | HMH.PHAINT ---
MEDICATION RECONCILIATION COMPLETE USING MEDICATION LIST FROM DR AZUL'S OFFICE AND EXTERNAL PHARMACY FILL CYNTHIA REPORT.
--- NOTE | 2021-05-14 08:57 | HMH.HPDC ---
General - General Admission date:: 05/13/21 Discharge date: 05/14/21 *Admission Date: 05/13/21 *Chief complaint: SOA *History of present illness: Mr. Webb is an 85-year-old white male with history of failure to thrive, systolic heart failure, chronic anemia, who presented to the ER yesterday with progressive shortness of breath and weakness. This is similar to his last 2 admissions. On Hospice at home. ER via EMS due to concern for worsening shortness of breath. Did not have his oxygen where he was staying. On initial assessment found to have mild hypoxia, mild respiratory acidosis. Started on supplemental oxygen and admitted to medicine for further management. Work-up concerning for CHF exacerbation and acute on chronic hypoxemic respiratory failure. Initiated on antibiotics for concern for possible COPD exacerbation. Given dose of diuretic as well to pull off extra fluid from CHF exacerbation. Has responded well with over 1700 cc of urine in his [place] obtained overnight. On exam this morning, patient appears comfortable on [place] O2. Asking for breakfast, at baseline level of function on exam this morning, pleasant and oriented on interview. Complains of shortness of breath but improved from admission, denies chest pain, nausea, vomiting, diarrhea. No headache or altered mental status. [facility] History I have reviewed the patient's past medical history: Yes Medical History: Reports:: Aneurysm, Cardiomyopathy, Congestive Heart Failure, Coronary Artery Disease, Hyperlipidemia, Hypertension, Internal Pacemaker, Myocardial Infarction Denies:: Cancer, Diabetes Mellitus Type 1, Diabetes Mellitus Type 2, MRSA, Seizures *Have you ever received a pneumonia vaccine?: Yes *Have you received a flu vaccine this season?: Yes Other Medical History: Reports: Hypothyroidism, Thyroid Disease Other Surgeries: Yes: CABG, Pacemaker Amputation: Yes (RT middle finger) Fractures: No - *Social History Last grade of school completed: High school graduate Smoking Status: Former smoker Tobacco Type: cigarettes # Packs/Day (cigarettes): 5 #Yrs smoked (if former smoker): 40 Alcohol Intake: never Alcohol Intake Frequency:: other Substance Use Type: denies use *Occupational Status:: retired Housing: house Household Members: none *Travel in the last 8 weeks: None Family Hx:: No significant family history Review of Systems - Review of Systems Review of systems:: pertinent systems reviewed and negative unless documented below (14 point review of systems performed, pertinent positives and negatives as per HPI) - *Neurologic Denies headache(s), Denies seizure-like activity Exam Vital signs and Labs for Last 24 Hours: Temp Pulse Resp BP Pulse Ox 97.9 F 73 20 133/78 98 05/14/21 08:00 05/14/21 08:00 05/14/21 08:00 05/14/21 08:00 05/14/21 08:00 Laboratory Results - last 24 hr 05/13/21 20:07: WBC 16.4 H, RBC 4.21 L, Hgb 12.7 L, Hct 39.3 L, MCV 93.3, MCH 30.1, MCHC 32.3, RDW 15.8, Plt Count 212, MPV 8.5, Neut % (Auto) 71.2, Lymph % (Auto) 22.8, [place] % (Auto) 3.4, Eos % (Auto) 2.0, Baso % (Auto) 0.7, Neut # (Auto) 11.7 H, Lymph # (Auto) 3.7, [place] # (Auto) 0.6, Eos # (Auto) 0.3, Baso # (Auto) 0.1, Total Counted 100, Neutrophils % (Manual) 67, Lymphocytes % (Manual) 21, Monocytes % (Manual) 6, Eosinophils % (Manual) 6 H, Platelet Estimate Normal, Spherocytes 1+ 05/13/21 20:07: Sodium 136, Potassium 4.6, Chloride 101, Carbon Dioxide 23, Anion Gap 16.6 H, BUN 21 H, Creatinine 1.50 H, Estimated Creat Clear 36, Estimated GFR 44 L, Est GFR ( Amer) 54 L, Glucose 201 H, Calcium 8.5, Total Bilirubin 0.8, AST 32, ALT 14, Alkaline Phosphatase 95, Troponin I < 0.01, C-Reactive Protein 11.0 H, NT-Pro-B Natriuret Pep 9890 H, Total Protein 7.6, Albumin 4.3, Globulin 3.3 H, Albumin/Globulin Ratio 1.3 05/13/21 20:07: Lactate 2.4 H 05/13/21 20:07: ESR 28 H 05/13/21 20:07: Procalcitonin 0.074 05/13/21 20:07: TSH 15.70 H, Thyroxine (T4) 9.3 05/13/21 20:25: SARS-C
--- NOTE | 2021-05-14 09:06 | HMH.PTEV ---
Physical Therapy Evaluation Rehab PT IP Evaluation Start: 05/14/21 07:00 Freq: ONCE Status: Active Protocol: Document 05/14/21 09:03 RICHARD (Rec: 05/14/21 09:05 PHOEMILY [id number]) Subjective/History History History 85 yowm adm to [facility] with poss sepsis. He reports he lives alone and is independent with mobility using straigth cane. He has been under the care of hospice. Subjective Subjective Pt currently has no c/o this am. Rehab PT IP Eval Objective Appearance Patient Behavior Appropriate Patient Orientation Person,Place,Time Difficulty following instructions none Speech Pattern Clear Ambulation Patient Able to Ambulate Yes Ambulation Observation IP General Gait Pattern Observation Wide Based Gait,Shuffling Step Ambulation Distance (feet) 10 Ambulation Assistive Device None Ambulation Ability Supervision/Stand by Balance Ability to Arise Able, uses arms to help Sitting Balance Steady, safe Standing Balance Steady, wide stance Dynamic Sitting Balance Ability Good Dynamic Standing Balance Ability Fair Transfers Bed Transfer Ability Supervision/Stand by Chair Transfer Ability Supervision/Stand by Sit to Stand Bed Transfer Ability Supervision/Stand by Sit to Stand Chair Transfer Ability Supervision/Stand by ROM All Extremities PT ROM Status WFL MMT All Extremities PT MMT WFL Rehab PT IP prob,goals,plan Problems Date of Evaluation: 05/14/21 Discharge Plan PT Discharge Plan Pt appears to be at baseline for all mobility at this time. Will defer further recs to hospice and MD. G -code Required No Eval Complexity Eval Charge Codes 78873 - Moderate Complexity PHYSICIAN CERTIFICATION: I certify the specified therapy services for Jeison Webb are required, authorized, and reviewed every 30 days.
[2021-05-14 12:09] VITALS: BP 127/81; PULSE 72; RESP 17; TEMP 36.3; O2SAT 93
== END 2021-05-14 12:25 | disposition hospice, home (50) | DRG 291 ==
LOC: ER 21:43 → 2ND 22:54
PROVIDERS: Admitting Provider Internal Medicine Adolescent Medicine; Emergency Provider Emergency Medicine; PCP Internal Medicine Adolescent Medicine; Visit Provider Internal Medicine Adolescent Medicine
DX: I13.0 Hypertensive heart and chronic kidney disease with heart failure and stage 1 through stage 4 chronic kidney disease, or unspecified chronic kidney disease (principal); I50.23 Acute on chronic systolic (congestive) heart failure; J96.20 Acute and chronic respiratory failure, unspecified whether with hypoxia or hypercapnia; J44.1 Chronic obstructive pulmonary disease with (acute) exacerbation; I42.9 Cardiomyopathy, unspecified; Z95.0 Presence of cardiac pacemaker; Z20.822 Contact with and (suspected) exposure to COVID-19; Z88.0 Allergy status to penicillin; I25.10 Atherosclerotic heart disease of native coronary artery without angina pectoris; I25.2 Old myocardial infarction; Z87.891 Personal history of nicotine dependence; Z89.021 Acquired absence of right finger(s); E03.9 Hypothyroidism, unspecified; N18.9 Chronic kidney disease, unspecified
CPT/HCPCS: 36415; 71045; 80053; 82803; 83605; 83880; 84145; 84436; 84443; 84484; 85007; 85025; 85651; 86140; 87040; 87070; 87077; 87186; 87205; 93005; 96365; 96375; 97162; 99285; U0003

== ENCOUNTER 2021-06-28 16:21 | Emergency (ER) | payer OTHER, MEDICARE, SELFPAY ==
[2021-06-28 16:22] VITALS: BP 136/91; PULSE 80; RESP 21; TEMP 36.6; O2SAT 97; BMI 29.0
--- NOTE | 2021-06-28 16:51 | XR_ITS ---
PROCEDURE INFORMATION: Exam: XR Chest Exam date and time: 06/28/2021 4:51 PM Age: 85 years old Clinical indication: Shortness of breath; Prior surgery; Surgery date: 6+ months; Surgery type: Pacemaker; Additional info: SOA TECHNIQUE: Imaging protocol: XR of the chest. Views: 1 view. COMPARISON: CR XR CHEST PORTABLE 05/13/2021 8:23 PM FINDINGS: Tubes, catheters and devices: A pacemaker device is present, and its leads are in appropriate position. There are sternal wires consistent with previous sternotomy incision. Lungs: Nonspecific bibasilar consolidation is present, consistent with atelectasis, edema, or pneumonia. Pleural spaces: Bilateral pleural effusions are present. There is no evidence of pneumothorax. Heart/Mediastinum: Mild cardiomegaly. Vasculature: The vasculature demonstrates diffuse mild atherosclerotic calcification. Bones/joints: The thoracic spine demonstrates mild degenerative changes at multiple levels. IMPRESSION: 1. Nonspecific bibasilar consolidation is present, consistent with atelectasis, edema, or pneumonia. 2. Bilateral pleural effusions are present.
--- NOTE | 2021-06-28 16:55 | PC.NURSE ---
doctor talking with family
--- NOTE | 2021-06-28 17:17 | PC.NURSE ---
speaking with hospice nurse and granddaughter about further care
--- NOTE | 2021-06-28 17:39 | HMH.EDGENADL ---
ED Disposition Clinical Impression: Encounter for screening for COVID-19 Disposition: Hospice - Medical Facility Condition on Discharge: Fair Referrals: Provider,Account, PHARMD [Primary Care Provider] - - Critical Care Critical Care Time: No Attestation: On 06/28/21, the high probability of a clinically significant, sudden or life threatening deterioration of the following system(s) required my full and direct attention, intervention and personal management. The time I documented below is in addition to time spent performing reported procedures but includes the following listed in this critical care notation. Medical Decision Making - Medical Records Medical records reviewed: Yes: I reviewed the patient's medical records. - Yaniv Inquiry Pt receiving controlled substance: No Vital Signs: 06/28/21 16:22 Temperature 97.9 F Temperature Source Axillary Pulse Rate [Left Radial] 80 Respiratory Rate 21 Blood Pressure [Right Arm] 136/91 H Blood Pressure Mean [Right Arm] 106 Blood Pressure Source [Right Arm] Automatic Cuff Blood Pressure Position [Right Arm] Sitting 02 Sat by Pulse Oximetry 97 Oxygen Delivery Method Room Air - Lab Data Lab Results 06/28/21 17:05: SARS-CoV-2 (PCR) Not detected, Influenza A Untype (PCR) Not detected, Influenza Type B (PCR) Not detected Medical Decision Narrative: Patient is a 85-year-old male to the ED today for further evaluation of CHF symptoms. Differential diagnoses include CHF exacerbation, COPD exacerbation, fluid overload, worsening heart failure. Patient is unwell appearing on examination, although is a hospice patient, has been taken by the hospice service to avoid taking this patient to the emergency department, however patient's daughter requested him to come here first prior to going to a inpatient hospice unit for which she has a bed reserved. Given the patient is on hospice, will not obtain lab evaluation, or CT imaging, will perform diuresis, as this is not consistent with patient's goals of care so far. We will have further discussions with patient's daughter should she plan to revoke hospice and pursue further measures, however as patient has been hospice bed available to him will encourage patient's daughter to use this resource. This resource, we have performed COVID-19 testing, which is negative. Patient's hospice nurse is facilitating care for the patient to go to inpatient hospice, report is been called, patient stable for ambulance ride there. Discussed again with patient's daughter about not obtaining further work-up for patient's symptoms, and she is agreeable with no further work-up at this time. General Adult HPI - General Chief complaint: Shortness of Breath/Dyspnea Stated complaint: short of breath Time Seen by Provider: 06/28/21 17:39 Mode of Arrival: Ambulatory Limitations: No Limitations Description of Symptoms (Recalled from ER Triage Doc. by RN): hospice pt sent in for further evalution for fluids in lungs. Pt denies any breathing issues at this time and doesnt know why he is on hospice. - History of Present Illness HPI narrative: Patient is an 85-year-old male with a history of end-stage CHF, heart failure with reduced ejection fraction on 3 L nasal cannula at home, currently on home hospice resents the ED today for further evaluation of worsening shortness of breath and leg swelling at home. Patient was seen by his hospice physician today, he was concerned the patient was volume overloaded, appeared more tachypneic than in the past, and wanted the patient to go to an inpatient hospice unit at the hospice care center at [facility] for which she has a bed. A phone call was made to the patient's daughter via the hospice service, who requested patient go to the emergency department prior to going to hospice care center. Patient is awake, alert, however very chronically unwell appearing, and unable to describe any significant symptoms currently.
[2021-06-28 18:17] LABS: Coronavirus 19, PCR Not Detected (NotDetected); Influenza A, PCR Not Detected (NotDetected); Influenza B, PCR Not Detected (NotDetected)
--- NOTE | 2021-06-28 18:56 | PC.NURSE ---
Pt accepted to hospice care at [facility]
[2021-06-28 20:17] VITALS: BP 124/75; PULSE 86; RESP 20; TEMP 36.6; O2SAT 97
== END 2021-06-28 20:20 | disposition hospice, inpatient (51) ==
PROVIDERS: Emergency Provider Student in an Organized Health Care Education/Training Program
DX: I50.9 Heart failure, unspecified (principal); Z11.52 Encounter for screening for COVID-19; I25.10 Atherosclerotic heart disease of native coronary artery without angina pectoris; I10 Essential (primary) hypertension; I25.2 Old myocardial infarction; E03.9 Hypothyroidism, unspecified; Z87.891 Personal history of nicotine dependence; E78.5 Hyperlipidemia, unspecified
CPT/HCPCS: 71045; 99283; U0003